=== PATIENT | male | born 1940 | race Caucasian/White ===

== ENCOUNTER 2019-08-20 11:29 | Day surgery (SDC) | payer MEDICARE ==
[2019-08-18 15:18] VITALS: BMI 25.1
[~2019-08-20 11:29] MED LIST: ALBUTEROL NEB (CONC) 2.5 MG/0.5 ML INHALATION ONE; DEXAMETHASONE SOD PHOSPHATE 10 MG/ML 1 ML VIAL IV ONE; LACTATED RINGERS 1,000 ML IV SCH; LIDOCAINE 1% (10MG/ML) FOR IV START INTRADERMA PRN; LIDOCAINE 2% (PF) 20 MG/ML 5 ML VIAL INHALATION ONE; LIDOCAINE VISCOUS 300 MG/15 ML CUP MUCOUS MEM ONE; ONDANSETRON 4 MG/2 ML VIAL IVP ONE; SODIUM CHLORIDE 0.9% 1,000 ML IV SCH
[2019-08-20] MEDS ORDERED: MIDAZOLAM 2 MG/2 ML VIAL IV ONE (12:55)
--- NOTE | 2019-08-20 13:25 | CT ---
EXAMINATION TYPE: CT Chest wo con [facility] Protocol DATE OF EXAM: 08/20/2019 COMPARISON: None HISTORY: Veran chest CT DLP: 604 mGycm Automated exposure control for dose reduction was used. FINDINGS: There is a 1.5 cm spiculated lesion in the right upper lobe highly suggestive of malignancy. Pleural- based thickening and additional areas of subsegmental consolidation are typical atelectasis. There is abnormal soft tissue in the left hilum suspicious for hilar mass or adenopathy measuring short axis of 1.6 cm with a superior segment left lower lobe irregular mass measuring 2.7 cm. A bronchial narrow ing noted. Linear changes involving the periphery of the posterior segment left lower lobe most typic al atelectasis. There are diffuse emphysematous changes. No pleural effusion or pneumothorax. Atherosclerotic change of the aorta and dense coronary artery th ree-vessel disease noted. There is a small hiatal hernia. Hypertrophic change of the spine noted. IMPRESSION: PRENAVIGATIONAL CT SCAN DEMONSTRATES LARGE LEFT SUPERIOR SEGMENT LOWER LOBE MASS MEASURING 2.7 CM WIT H SUSPECTED LEFT HILAR ADENOPATHY SUSPICIOUS FOR MALIGNANCY. ADDITIONAL 1.5 CM SUSPICIOUS FOR MALIGNA NCY LESION RIGHT UPPER LOBE.
[2019-08-20] MEDS ORDERED: MIDAZOLAM 2 MG/2 ML VIAL ONE (14:27)
[2019-08-20] MEDS ORDERED: LABETALOL 5 MG/ML VIAL MDV ONE (14:27)
[2019-08-20] MEDS ORDERED: LIDOCAINE 1% INJ 10MG/ML (20 ML MDV) ONE (14:27)
[2019-08-20] MEDS ORDERED: PROPOFOL 10 MG/ML 20 ML VIAL IV ONE (14:27)
[2019-08-20] MEDS ORDERED: fentaNYL (PF) 50 MCG/ML 2 ML AMP ONE (14:27)
[2019-08-20] MEDS ORDERED: ESMOLOL 100 MG/10 ML VIAL ONE (14:27)
[2019-08-20] MEDS ORDERED: LACTATED RINGERS 1,000 ML IV ONE (15:21)
--- NOTE | 2019-08-20 15:27 | P.PCN ---
Date of Procedure: 08/20/19 Preoperative Diagnosis: LLL mass and RUL mass Postoperative Diagnosis: same Procedure(s) Performed: Navigational bronchoscopy and TBBX of the LLL mass, TBBB RUL mass, transbronchial brushings of the left lower lobe mass and the right upper lobe mass, bronchioloalveolar lavage of the left lower lobe superior segment Anesthesia: MARYA Surgeon: Tejas Vazquez Estimated Blood Loss (ml): 0 Pathology: other Condition: stable Disposition: same day Operative Findings: This procedure was done and the endoscopy suite. A CAT scan of the chest was done using the [employer] protocol. The patient was had the appropriate Vpads place. The images were uploaded into the system where the left lower lobe lesion and the right upper lobe lesion was identified and was mapped and all of this information was then downloaded into the [employer] navigational tower The patient was brought into the operating room where he was intubated by anesthesia and placed on a mechanical ventilator. Following that, the flexible bronchoscope was introduced through the oral tracheal tube, appropriate calibration was done using the main sasha and the secondary sasha on the left as reference points and following that an airway inspection was done. Distal trachea was within normal limits. Examination of the right side included the right mainstem bronchus, right upper lobe bronchus regular lobe bronchus and right lower lobe bronchus along with various segments and subsegments. All of these airways were patent. Examination left side included left mainstem bronchus that was normal. Left upper lobe bronchus was within normal limits. The lingular segment was within normal limits. Left lower lobe superior segment was plugged with endobronchial irregularities and possibly some endobronchial tumor. There was also extrinsic compression and narrowing of the segment where I was unable to advance the bronchoscope passed that. The various segments of the left lower lobe including the anterior lateral and posterior segments were patent and within normal limits. At this point, the bronchoscope was moved to the severe segment of the left lower lobe and using navigational guidance, transbronchial biopsies of the left infrahilar mass was done. Multiple biopsies were obtained. Endobronchial brushings was also done utilizing the navigational guidance. Following that, a total of 80 mL of fluid was infused into the subsegment and 10 cc of bloody aspirate was obtained. Following that, the bronchoscope was moved to the right side. Using navigational guidance, the bronchoscope was directed to the right upper lobe apical segment. Transbronchial biopsies obtained using navigational guidance. Transbronchial brushings of the right upper lobe lesion was done using navigational guidance. Therapeutic airway suctioning was done. Airways were cleared of any respiratory secretions and the bronchoscope was removed. The patient was left for anesthesia for extubation. After successful extubation, the patient will be transferred to recovery for further monitoring. No bedside complications was encountered during the procedure the patient remains with an empty stable oxygenating well throughout the procedure. Appropriate samples were sent for pathologic evaluation.
[2019-08-20 15:51] VITALS: TEMP 97.2
--- NOTE | 2019-08-20 16:00 | XR ---
EXAMINATION TYPE: XR chest 1V DATE OF EXAM: 08/20/2019 COMPARISON: NONE HISTORY: Post bronchoscopy TECHNIQUE: Single frontal view of the chest is obtained. FINDINGS: Bilateral patchy airspace disease is noted. A spiculated nodule seen in the right upper lo be by CT scan not as well seen. Left hilar prominence with nodularity noted by CT scan is seen. No si zable pneumothorax. Correlate for underlying COPD or chronic interstitial lung disease. IMPRESSION: 1. No sizable pneumothorax identified. 2. Bilateral areas of consolidation and pulmonary mass are better seen by recent CT scan.
[2019-08-20 17:28] VITALS: BP 120/67; PULSE 81; RESP 18
== END 2019-08-20 17:15 | disposition home or self-care (01) ==
LOC: ORWHC2ENDO 11:29
PROVIDERS: ATTEND Internal Medicine Critical Care Medicine
DX: C34.32 Malignant neoplasm of lower lobe, left bronchus or lung (principal); J98.4 Other disorders of lung; N40.0 Benign prostatic hyperplasia without lower urinary tract symptoms; J43.9 Emphysema, unspecified; I10 Essential (primary) hypertension; F17.210 Nicotine dependence, cigarettes, uncomplicated; Z79.899 Other long term (current) drug therapy; Z81.8 Family history of other mental and behavioral disorders; Z83.1 Family history of other infectious and parasitic diseases; Z97.2 Presence of dental prosthetic device (complete) (partial)
CPT/HCPCS: 88104; 88108; 88305; 88342; 87070; 87205; 71045; 71250; 31625; 31623; 31624; 31627; J2250; J2405; J2001; J3010; J2704

== ENCOUNTER → 2019-09-16 | Outpatient (CLI) | payer MEDICARE ==
--- NOTE | 2019-09-16 16:03 | MR ---
EXAMINATION TYPE: MR brain wo/w con DATE OF EXAM: 09/16/2019 COMPARISON: NONE HISTORY: Lung cancer with concern for intracranial metastasis. TECHNIQUE: Multiplanar, multisequence images of the brain and brainstem is performed without and with IV contras t, utilizing 7.5 mL intravenous Gadavist . FINDINGS: Diffusion weighted images demonstrate no evidence of a recent infarct or other diffusion ab normality. There is no extra-axial fluid collection. Mild both white matter and periventricular whit e matter T2/FLAIR hyperintensity without abnormal enhancement. The ventricular system and cisternal s paces are symmetrically prominent compatible with age-related volume loss. Midline structures demonstrate normal morphology. The craniocervical junction appears within normal limits. Post contrast images demonstrate no abnormal enhancement. The dural venous sinuses appear pa tent. The visualized sinuses display mild mucosal thickening in frontal and ethmoid sinuses as well a s scant mucosal thickening in the right maxillary sinus inferiorly. The globes are intact. IMPRESSION: 1. No abnormal intracranial. No vasogenic edema. No evidence of intracranial metastasis. 2. Mild burden nonspecific white matter change, most commonly on the basis of chronic microangiopathy . 3. No acute infarct, midline shift or mass effect. 4. Mild paranasal sinus disease.
== END | disposition home or self-care (01) ==
LOC: RADMRIMAIN 11:04
PROVIDERS: ATTEND Radiology Radiation Oncology
DX: R90.82 White matter disease, unspecified (principal); C34.32 Malignant neoplasm of lower lobe, left bronchus or lung
CPT/HCPCS: 70553; A9585

== ENCOUNTER → 2019-12-09 | Outpatient (CLI) | payer MEDICARE ==
[2019-12-09 10:40] LABS: African American GFR (CKD) >90 (>60 ml/min/1.73 sqM); Blood Urea Nitrogen 19 mg/dL (9-20); Non-African American GFR(CKD) 89 (>60 ml/min/1.73 sqM)
--- NOTE | 2019-12-09 11:59 | CT ---
EXAMINATION TYPE: CT chest w con DATE OF EXAM: 12/09/2019 COMPARISON: Outside PET CT August 15, 2019. HISTORY: follow up lung cancer completed chemotherapy and radiation treatment last month. CT DLP: 303.1 mGycm. Automated Exposure Control for Dose Reduction was Utilized. TECHNIQUE: CT scan of the thorax is performed following with IV Contrast, patient injected with 100 mL of Isovue 300. FINDINGS: LUNGS: Background mild to moderate underlying emphysematous change greatest in the upper lungs. Persi stent spiculated 1.4 x 1.1 cm right upper lung nodule or neoplasm axial image 20 not significantly ch anged from PET CT axial image 83. There is additional residual posterior left hilar 2.8 x 2.3 cm mass or neoplasm axial image 31 which is decreased in size or prominence from the recent PET/CT where it had left hilar involvement or extension. Some residual peribronchial wall thickening left lower lobe bronchus on axial image 35 remains present . No New nodules or masses. No pleural effusion or pneumot horax noted. MEDIASTINUM: There is marked interval improvement in the abnormal thoracic lymph nodes on PET CT. N o definitive greater than 1 cm new or residual thoracic lymph nodes present on current study. No card iomegaly or pericardial effusion is seen. Persistent coronary artery calcification which is noted ma rker for underlying coronary artery disease. OTHER: Small degree of bilateral subareolar gynecomastia redemonstrated. Stable asymmetric thickening to left adrenal gland which was a metabolic on PET CT IMPRESSION: Resolved enlarged hypermetabolic mediastinal adenopathy. Improved left hilar mass or neop lasm. Stable right upper lobe nodule or neoplasm. No new suspicious nodules or adenopathy noted. Over all partial positive treatment response.
== END | disposition home or self-care (01) ==
LOC: RADCTMAIN 10:02
PROVIDERS: ATTEND Internal Medicine Hematology & Oncology
DX: R91.1 Solitary pulmonary nodule (principal); C34.32 Malignant neoplasm of lower lobe, left bronchus or lung
CPT/HCPCS: 82565; 84520; 71260; 36415; Q9967

== ENCOUNTER → 2020-03-08 | Outpatient (CLI) | payer MEDICARE ==
[2020-03-08 09:26] LABS: African American GFR (CKD) >90 (>60 ml/min/1.73 sqM); Blood Urea Nitrogen 20 mg/dL (9-20); Non-African American GFR(CKD) 83 (>60 ml/min/1.73 sqM)
--- NOTE | 2020-03-09 09:06 | CT ---
EXAMINATION TYPE: CT chest w con DATE OF EXAM: 03/08/2020 COMPARISON: 12/09/2019 HISTORY: Lung CA CT DLP: 404.7 mGycm, Automated exposure control for dose reduction was used. CONTRAST: Performed injected with 100 mL of Isovue 300. TECHNIQUE: Axial images were obtained at 5 mm thick sections. Reconstructed images are reviewed on [employer] computer in the coronal plane. FINDINGS: Portion of the thyroid visualized is normal. Emphysematous changes are present. Some distortion within the right apex. This area has diminished in volume over the interval, measurements approximately 1.5 x 1.0 cm are similar to the previous measu rement 1.5 x 1.1 cm. Previous posterior left hilar density has increased in size currently measuring 4.2 x 2.5 cm. Previou s measurement 2.4 x 1.8 cm. Additionally, distal increased consolidation is present. Series 4 image 2 8. There is a small density adjacent to the posterior left lung base measuring 0.7 cm. This could be ate lectasis. Metastatic lesion is not excluded. This is a new finding. No enlarged mediastinal or hilar adenopathy is evident. The ascending aorta diameter at the level o f the main pulmonary artery is 3.6 cm. The main pulmonary artery diameter at the bifurcation is 2.2 cm. Coronary artery calcification is present. Limited CT sections are obtained through the upper abdomen. There is a small hiatal hernia present. T here is elevation left diaphragm. Upper abdomen is otherwise unremarkable. IMPRESSIONS: 1. Left posterior density has increased in size and peripheral consolidation distal to this has devel oped over the interval. 2. Right apical density has diminished in volume although size measurements are stable. 3. New density posterior left lung base. Metastasis is not excluded. This could be related to atelect asis.
== END | disposition home or self-care (01) ==
LOC: RADCTMAIN 08:40
PROVIDERS: ATTEND Internal Medicine Hematology & Oncology
DX: J98.4 Other disorders of lung (principal); C34.30 Malignant neoplasm of lower lobe, unspecified bronchus or lung
CPT/HCPCS: 82565; 84520; 71260; 36415; Q9967

== ENCOUNTER → 2020-03-24 | Outpatient (CLI) | payer MEDICARE ==
--- NOTE | 2020-03-28 18:02 | PE ---
EXAMINATION TYPE: PET CT fusion skull to thigh DATE OF EXAM: 03/24/2020 COMPARISON: CT chest 03/08/2020 Prior PET/CT: 08/15/2019 [facility] HISTORY: Lung cancer TECHNIQUE: Following the intravenous administration of 12.70 mCi of F-18 FDG, whole body images are performed from the skull base to the midthigh. Images are reviewed on the computer in the coronal, a xial, and sagittal planes. Reconstructed rotating images are created on independent workstation and reviewed on the computer. A localization and attenuation correction CT is performed in conjunction with the PET scan. DLP: 478.26 mGycm SCAN: Subsequent Blood glucose: 105 mg/dL Average Mediastinum SUV: 1.3 Average Liver SUV: 1.71 FINDINGS: NECK: No abnormal uptake THORAX: There is diffuse increased uptake within the consolidation within the posterior left midlung. Example SUV of 5.29 Small area of increased density within the posterior medial left lung base does not have abnormal ra diotracer uptake with an SUV value currently is 0.61. Image 118 Small density of the right apex is nonspecific and has an SUV value of 0.85. Image 78 ABDOMEN: No abnormal uptake PELVIS: No abnormal uptake OSSEOUS STRUCTURES: Slight increase uptake may be within the left iliac wing superior to the acetabul um, example image 209. SUV values intermediate at 1.28. This is asymmetric with the contralateral khurram e however LOCALIZATION CT: There is a large dense consolidation through the posterior left midlung correspondin g to the area of uptake on PET scan compatible with the patient's neoplasm. Note is made of coronary artery calcification. There is a hypodensity within the inferior right lobe liver which is photopenic likely is a cyst. Bilateral inguinal hernias are present. COMPARISON: Right apical lesion is smaller than comparison currently measuring 1.4 x 0.9 cm. Previous measurement 1.6 x 1.1 cm. SUV values also intermediate. Previous consolidation was localized to the posterior left hilar region. This currently extends around the lung to the peripheral left lung giacomo n enlarged over the interval. The nodule within the posterior left lung base was not identified previ ously. IMPRESSION: 1. Enlarging left lung neoplasm. This has expanded from the posterior left hilar region to extract ex tend around through the posterior aspect of the lung to the lateral left midlung. 2. Right apical nodule has diminished in size over the interval. Small nodule may have developed at t he left lung base. However, these nodules have intermediate signal and are nonspecific for neoplasm. 3. Ill-defined mild increased uptake in the mid left iliac wing. Early metastasis cannot be excluded.
== END | disposition home or self-care (01) ==
LOC: RADPETMAIN 13:21
PROVIDERS: ATTEND Internal Medicine Hematology & Oncology
DX: R91.8 Other nonspecific abnormal finding of lung field (principal); C34.32 Malignant neoplasm of lower lobe, left bronchus or lung; Z92.21 Personal history of antineoplastic chemotherapy
CPT/HCPCS: 78815; A9552

== ENCOUNTER → 2020-07-07 | Outpatient (CLI) | payer MEDICARE ==
--- NOTE | 2020-07-10 13:50 | PE ---
Nuclear medicine PET/CT HISTORY: Left lower Lung carcinoma, C 34.32, subsequent Patient received 12.4 mCi F-18 FDG intravenously in delayed scanning was performed from the skull bas e to the mid thighs. Localization and attenuation correction CT scan was performed. Correlation to prior nuclear medicine PET/CT dated 03/24/2020 Chest and neck: There is no supraclavicular or cervical adenopathy. Right upper lobe shows interval d evelopment of abnormal increased attenuation as compared to prior exam the area has progressed, focus of uptake present in the perihilar region, SUV 0.7. There is some air bronchograms present medially extending to the apex and along the medial aspect of the left upper lobe as well as the anterior kim in along the pleural surface with some mild uptake. Within superior segment of the right lower lobe t here is some abnormal peripheral density with corresponding hypermetabolic uptake, SUV 3.9. Groundgla ss opacity in the left upper lobe has developed, there is soft tissue with interval development fox red to prior exam, air bronchograms, left lower lobe is also showing interval development of a centra l mass with some peripheral possible postobstructive changes, SUV 2.6, peripherally some mild uptake, SUV 2.6. There is no pleural or pericardial effusion. ABDOMEN: Low dense focus within the inferior right lobe of the liver shows uncertain unit measurement s consistent with cyst, there is no suspicious uptake. There is a hiatal hernia present. No retroperi toneal adenopathy or evident adrenal mass. There is no ascites. Uptake within the bowel is likely due to physiologic. Bilateral hernias are present in the groins containing bowel loops. No evident pelvi c adenopathy. Osseous structures show no suspicious uptake IMPRESSION: Bilateral areas of abnormal attenuation within the lungs with areas of hypermetabolic upt lisa as described.
== END | disposition home or self-care (01) ==
LOC: RADPETMAIN 09:36
PROVIDERS: ATTEND Internal Medicine Hematology & Oncology
DX: C34.32 Malignant neoplasm of lower lobe, left bronchus or lung (principal)
CPT/HCPCS: 78815; A9552

== ENCOUNTER 2020-08-15 09:02 | Inpatient (IN) | payer MEDICARE ==
[2020-08-15] MEDS ORDERED: IPRATROPIUM-ALBUTEROL 3 ML NEB INHALATION STA (09:25)
--- NOTE | 2020-08-15 09:31 | ED ---
General Adult HPI - General Chief complaint: Chest Pain Stated complaint: chest pain/SOB-sent by [facility] Time Seen by Provider: 08/15/20 09:05 Source: patient, RN/MD, RN notes reviewed Mode of arrival: wheelchair Limitations: no limitations - History of Present Illness Initial comments: Patient is a pleasant 80-year-old male presenting to the emergency Department with complaints of dyspnea. Patient has lung cancer sent from Dr. Ervin's office. Patient states dyspnea has been progressive over months. Patient has been on steroids recently and states patient has been she was short of breath the past week. Patient has had temperature at home up to 100.6. Patient is able to walk around 10 feet before having to break and rest. No leg pain or leg swelling. Patient does have some mild chest tightness. Patient does have occasional cough with nonproductive. - Related Data Home Medications Medication Instructions Recorded Confirmed Ascorbic Acid [Vitamin C] 500 mg PO DAILY 08/18/19 08/15/20 Multivitamins, Thera [Multivitamin 1 tab PO DAILY 08/18/19 08/15/20 (formulary)] Tamsulosin [Flomax] 0.4 mg PO HS 08/18/19 08/15/20 Ibuprofen [Motrin Ib] 400 mg PO DAILY PRN 08/15/20 08/15/20 Allergies Allergy/AdvReac Type Severity Reaction Status Date / Time No Known Allergies Allergy Verified 08/15/20 11:00 Review of Systems ROS Statement: Those systems with pertinent positive or pertinent negative responses have been documented in the HPI. ROS Other: All systems not noted in ROS Statement are negative. Constitutional: Denies: fever Eyes: Denies: eye pain ENT: Denies: ear pain Respiratory: Reports: as per HPI, cough, dyspnea Cardiovascular: Reports: as per HPI, chest pain Endocrine: Reports: fatigue Gastrointestinal: Denies: abdominal pain Genitourinary: Denies: dysuria Musculoskeletal: Denies: back pain Skin: Denies: rash Neurological: Denies: weakness Past Medical History Additional Past Medical History / Comment(s): SOB,74% lung capacity,cough intermittently, enlarged prostate History of Any Multi-Drug Resistant Organisms: None Reported Past Surgical History: Tonsillectomy Additional Past Surgical History / Comment(s): lung biopsy Past Anesthesia/Blood Transfusion Reactions: No Reported Reaction Past Psychological History: No Psychological Hx Reported Smoking Status: Former smoker Past Alcohol Use History: None Reported Past Drug Use History: None Reported - Past Family History Mother Family Medical History: No Reported History Father Family Medical History: Deep Vein Thrombosis (DVT) General Exam Limitations: no limitations General appearance: alert, in no apparent distress Head exam: Present: normocephalic Eye exam: Present: normal appearance Neck exam: Present: normal inspection Respiratory exam: Present: respiratory distress, accessory muscle use Cardiovascular Exam: Present: regular rate, normal rhythm Expanded Peripheral pulses: 2+: Radial (R), Radial (L), Posterior Tibialis (R), Posterior Tibialis (L) GI/Abdominal exam: Present: soft. Absent: tenderness Extremities exam: Present: normal inspection. Absent: pedal edema, calf tenderness Neurological exam: Present: alert Psychiatric exam: Present: normal affect, normal mood Skin exam: Present: normal color Course Vital Signs 08/15/20 08/15/20 08/15/20 09:06 09:29 09:42 Temperature 98.7 F Pulse Rate 110 H 105 H 105 H Respiratory 20 22 Rate Blood Pressure 151/83 151/82 O2 Sat by Pulse 95 98 Oximetry 08/15/20 08/15/20 09:52 11:01 Temperature Pulse Rate 106 H 110 H Respiratory 18 Rate Blood Pressure 131/90 O2 Sat by Pulse 97 Oximetry - Reevaluation(s) Reevaluation #1: 08/15/20 09:26 Case was discussed with Dr. Ervin who did a sinus patient over. He states patient did have pulse ox 76-79% on room air in the office. Recent low-grade fevers. He would like computed tomography scan of the chest done. He is concerned for possible: Pulmonary embolism versus covid versus pneumonitis related to treatment. EKG Findings - EKG Comments: EKG Findings:: Sinus tachycardia 108. MT 150. QRS 126. QT 362. QTC 45. Superior axis. Right bundle-branch block. No acute ST change. Medical Decision Making - Medical Decision Making He should reevaluated and resting comfortably in bed. Patient and family updated on results and plan. Dr. andrews notified who will admit covering for Dr. Fernandez, who admits for Dr. Gordon. Consult will be placed with Dr. Arcadio Vazquez. - Lab Data Result diagrams: 08/15/20 09:39 03/02/21 09:39 Lab Results 08/15/20 08/15/20 08/15/20 Range/Units 09:38 09:39 09:39 WBC 4.2 (3.8-10.6) k/uL RBC 4.82 (4.30-5.90) m/uL Hgb 14.7 (13.0-17.5) gm/dL Hct 42.6 (39.0-53.0) % MCV 88.4 (80.0-100.0) fL MCH 30.6 (25.0-35.0) pg MCHC 34.6 (31.0-37.0) g/dL RDW 14.3 (11.5-15.5) % Plt Count 197 (150-450) k/uL MPV 6.9 Neutrophils % 73 % Lymphocytes % 15 % Monocytes % 7 % Eosinophils % 2 % Basophils % 1 % Neutrophils # 3.0 (1.3-7.7) k/uL Lymphocytes # 0.6 L (1.0-4.8) k/uL Monocytes # 0.3 (0-1.0) k/uL Eosinophils # 0.1 (0-0.7) k/uL Basophils # 0.0 (0-0.2) k/uL PT 10.3 (9.0-12.0) sec INR 1.0 (<1.2) APTT 24.3 (22.0-30.0) sec Sodium (137-145) mmol/L Potassium (3.5-5.1) mmol/L Chloride (98-107) mmol/L Carbon Dioxide (22-30) mmol/L Anion Gap mmol/L BUN (9-20) mg/dL Creatinine (0.66-1.25) mg/dL Est GFR (CKD-EPI)AfAm (>60 ml/min/1.73 sqM) Est GFR (CKD-EPI)NonAf (>60 ml/min/1.73 sqM) Glucose (74-99) mg/dL Plasma Lactic Acid All (0.7-2.0) mmol/L Calcium (8.4-10.2) mg/dL Total Bilirubin (0.2-1.3) mg/dL AST (17-59) U/L ALT (4-49) U/L Alkaline Phosphatase (38-126) U/L Troponin I (0.000-0.034) ng/mL NT-Pro-B Natriuret Pep pg/mL Total Protein (6.3-8.2) g/dL Albumin (3.5-5.0) g/dL Coronavirus (PCR) Not Detected (Not Detectd) 08/15/20 08/15/20 08/15/20 Range/Units 09:39 09:39 09:39 WBC (3.8-10.6) k/uL RBC (4.30-5.90) m/uL Hgb (13.0-17.5) gm/dL Hct (39.0-53.0) % MCV (80.0-100.0) fL MCH (25.0-35.0) pg MCHC (31.0-37.0) g/dL RDW (11.5-15.5) % Plt Count (150-450) k/uL MPV Neutrophils % % Lymphocytes % % Monocytes % % Eosinophils % % Basophils % % Neutrophils # (1.3-7.7) k/uL Lymphocytes # (1.0-4.8) k/uL Monocytes # (0-1.0) k/uL Eosinophils # (0-0.7) k/uL Basophils # (0-0.2) k/uL PT (9.0-12.0) sec INR (<1.2) APTT (22.0-30.0) sec Sodium 138 (137-145) mmol/L Potassium 4.6 (3.5-5.1) mmol/L Chloride 102 (98-107) mmol/L Carbon Dioxide 29 (22-30) mmol/L Anion Gap 7 mmol/L BUN 23 H (9-20) mg/dL Creatinine 0.95 (0.66-1.25) mg/dL Est GFR (CKD-EPI)AfAm 89 (>60 ml/min/1.73 sqM) Est GFR (CKD-EPI)NonAf 77 (>60 ml/min/1.73 sqM) Glucose 108 H (74-99) mg/dL Plasma Lactic Acid All 1.9 (0.7-2.0) mmol/L Calcium 8.9 (8.4-10.2) mg/dL Total Bilirubin 1.0 (0.2-1.3) mg/dL AST 37 (17-59) U/L ALT 46 (4-49) U/L Alkaline Phosphatase 90 (38-126) U/L Troponin I <0.012 (0.000-0.034) ng/mL NT-Pro-B Natriuret Pep pg/mL Total Protein 6.8 (6.3-8.2) g/dL Albumin 3.7 (3.5-5.0) g/dL Coronavirus (PCR) (Not Detectd) 08/15/20 Range/Units 09:39 WBC (3.8-10.6) k/uL RBC (4.30-5.90) m/uL Hgb (13.0-17.5) gm/dL Hct (39.0-53.0) % MCV (80.0-100.0) fL MCH (25.0-35.0) pg MCHC (31.0-37.0) g/dL RDW (11.5-15.5) % Plt Count (150-450) k/uL MPV Neutrophils % % Lymphocytes % % Monocytes % % Eosinophils % % Basophils % % Neutrophils # (1.3-7.7) k/uL Lymphocytes # (1.0-4.8) k/uL Monocytes # (0-1.0) k/uL Eosinophils # (0-0.7) k/uL Basophils # (0-0.2) k/uL PT (9.0-12.0) sec INR (<1.2) APTT (22.0-30.0) sec Sodium (137-145) mmol/L Potassium (3.5-5.1) mmol/L Chloride (98-107) mmol/L Carbon Dioxide (22-30) mmol/L Anion Gap mmol/L BUN (9-20) mg/dL Creatinine (0.66-1.25) mg/dL Est GFR (CKD-EPI)AfAm (>60 ml/min/1.73 sqM) Est GFR (CKD-EPI)NonAf (>60 ml/min/1.73 sqM) Glucose (74-99) mg/dL Plasma Lactic Acid All (0.7-2.0) mmol/L Calcium (8.4-10.2) mg/dL Total Bilirubin (0.2-1.3) mg/dL AST (17-59) U/L ALT (4-49) U/L Alkaline Phosphatase (38-126) U/L Troponin I (0.000-0.034) ng/mL NT-Pro-B Natriuret Pep 46 pg/mL Total Protein (6.3-8.2) g/dL Albumin (3.5-5.0) g/dL Coronavirus (PCR) (Not Detectd) - Radiology Data Radiology results: report reviewed (No pulmonary embolism. Possible right lower lobe pneumonia. Bilateral upper lobe and left irregularities show changes of improvement.) Disposition Clinical Impression: Pneumonia Disposition: ADMITTED IP TO THIS HOSP Is patient prescribed a controlled substance at d/c from ED?: No Referrals: Omi Cummins MD [Primary Care Provider] - 1-2 days Decision Time: 11:44
[2020-08-15 09:58] LABS: Basophils % (A) 1 %; Eosinophils # (A) 0.1 k/uL (0-0.7); Eosinophils % (A) 2 %; HCT 42.6 % (39.0-53.0); HGB 14.7 gm/dL (13.0-17.5); Lymphocytes # (A) 0.6 k/uL (1.0-4.8); Lymphocytes % (A) 15 %; MCH 30.6 pg (25.0-35.0); MCHC 34.6 g/dL (31.0-37.0); MCV 88.4 fL (80.0-100.0); Mean Platelet Volume 6.9; Monocytes # (A) 0.3 k/uL (0-1.0); Monocytes % (A) 7 %; Neutrophils % (A) 73 %; Platelet Count 197 k/uL (150-450); RBC 4.82 m/uL (4.30-5.90); RDW 14.3 % (11.5-15.5); WBC 4.2 k/uL (3.8-10.6)
[2020-08-15 10:06] LABS: Albumin 3.7 g/dL (3.5-5.0); Calcium 8.9 mg/dL (8.4-10.2); Potassium 4.6 mmol/L (3.5-5.1); Total Protein 6.8 g/dL (6.3-8.2)
[2020-08-15 10:09] LABS: Partial Thromboplastin Time 24.3 sec (22.0-30.0); Prothrombin Time 10.3 sec (9.0-12.0)
--- NOTE | 2020-08-15 11:21 | CT ---
EXAMINATION TYPE: CT angio chest DATE OF EXAM: 08/15/2020 COMPARISON: PET/CT 07/07/2020. 03/24/2020. HISTORY: 80-year-old male Dyspnea, chest Tightness, Cough. History of lung cancer, evaluate for PE. TECHNIQUE: Contiguous axial scanning of the chest performed with IV Contrast, patient injected with 7 4 mL of Isovue 370. Coronal/sagittal MIP reconstructions performed. CT DLP: 333.5 mGycm Automated exposure control for dose reduction was used. FINDINGS: Heart normal size without pericardial effusion. No flattening of the interventricular septum or reflu x of contrast into the hepatic veins. Three-vessel coronary artery calcifications are present. Aorta normal caliber with a conventional access of branching anatomy. Satisfactory opacification of the pulmonary arterial system. No evidence for pulmonary embolus. Subcarinal lymph node is larger at 1.1 cm versus 6 mm, previously. However, no other thoracic lymphad enopathy is identified otherwise. Irregular areas of volume loss and consolidation are noted within the right greater than left upper l obes and left hilum. In the upper lobes, this appearance is relatively unchanged from 07/07/2020. The left hilar opacity shows improvement in the lower lobe/infrahilar region though persistent masslike p erihilar consolidation remains just above measuring up to 6.2 cm, not significantly changed. Previous focal opacity posterior right lower lobe, axial image 65 also shows some improvement with on ly some residual groundglass density. However, there is new patchy airspace opacity posterior right base. Background of moderate emphysema. Small to moderate-sized hernia in the visualized upper abdomen. Bones: No osseous destructive process. IMPRESSION: 1. COPD WITH MODERATE EMPHYSEMA. CAD WITH THREE-VESSEL CORONARY ARTERY CALCIFICATIONS. 2. NO EVIDENCE FOR PULMONARY EMBOLUS. 3. BILATERAL UPPER LOBE IRREGULAR AREAS OF CONSOLIDATION AND VOLUME LOSS AND ALSO LARGE AREA IN THE L EFT PERIHILUM, SUSPECTED SITES OF TREATED DISEASE AND POST RADIATION THERAPY CHANGE. ALONG THE LEFT L OWER LOBE/LEFT INFRAHILAR REGION AND ALSO ALONG THE POSTERIOR RIGHT LOWER LOBE, THE CHANGES ARE IMPRO VING, POSSIBLE IMPROVING RADIATION PNEUMONITIS. 4. HOWEVER, THERE IS NEW PATCHY AIRSPACE DISEASE AT THE POSTERIOR RIGHT BASE THAT COULD REPRESENT PNE UMONIA. 5. IN ADDITION, THERE IS A SUBCARINAL LYMPH NODE WHICH IS NOT ENLARGED BUT INCREASING IN SIZE CURRENT LY AT 1.1 CM VERSUS 6 MM, PREVIOUSLY. APPROPRIATE CONTINUED ONCOLOGIC FOLLOW-UP RECOMMENDED.
[2020-08-15] MEDS ORDERED: PNEUMONIA PROTOCOL UTILIZED 1 EACH MISC PO PRN (11:48)
[2020-08-15] MEDS ORDERED: AZITHROMYCIN 500 MG in SODIUM CHLORIDE 0.9% 250 ML IVPB STA (11:48)
[2020-08-15] MEDS ORDERED: IPRATROPIUM-ALBUTEROL 3 ML NEB INHALATION PRN ×2 (11:48→13:10)
[2020-08-15] MEDS ORDERED: CEFEPIME 2 GM in SODIUM CHLORIDE 0.9% 100 ML IVPB STA (11:48)
[2020-08-15] MEDS ORDERED: IPRATROPIUM-ALBUTEROL 3 ML NEB INHALATION SCH (12:00)
[2020-08-15] MEDS: SODIUM CHLORIDE 0.9% 1,000 ML IV SCH ×2 (12:28→23:55)
[2020-08-15] MEDS: IPRATROPIUM-ALBUTEROL 3 ML NEB INHALATION SCH ×2 (13:51→19:11)
--- NOTE | 2020-08-15 13:56 | P.CNPUL ---
History of Present Illness Consult date: 08/15/20 Reason for consult: dyspnea, pneumonia History of present illness: Pleasant 80-year-old male patient a chronic smoker. Wasn't diagnosed having a squamous cell carcinoma of the lung. He initially presented to me in August 2009 with abnormal CAT scan of the chest. He was having cough for almost a year. He went to see his Dr. Cummins and the patient had a chest x-ray that came back abnormal. Following that he was given a CAT scan of the chest that showed a spiculated area of masslike density in the left perihilar area in the superior segment of the left lower lobe segment measuring 3.2 x 2.1 cm in size. There was a second spiculated lesion in the right upper lobe measuring 1.2 x 1 cm. There is underlying emphysema. No significant mediastinal lymphadenopathy with exception of one left hilar lymph node measuring 1.2 cm in size. I performed a navigational bronchoscopy on this patient and the patient was diagnosed having a squamous cell carcinoma of the left upper lobe. He had a left perihilar mass with lymphadenopathy that was biopsied it was consistent with was cell carcinoma. He had another 1.4 cm lesion in the right upper lobe bronchoscopy did not yield any positive results from the right upper lobe and we assume that this is either a metastatic deposit for a synchronous primary. The patient was referred to oncology. He was started on treatment. He receives concurrent chemoradiation therapy which he tolerated well. He lost around 5 pounds. He developed some dysphagia which is mild. He is also having some exertional d yspnea. He has COPD and his FEV1 is no more than of 73% of predicted. He underwent a follow-up PET/CT that was done on 12/09/2019 and the PET/CT showed that the spiculated lesion in the right upper lobe has remained unchanged compared to the previous imaging and was measuring 1.4 x 1.1 cm. As for the left side, there was significant improvement. There was resolution of the enlarged hypermetabolic mediastinal lymphadenopathy and improved left hilar mass. No suspicious nodules appeared other than the ones mentioned. This was consistent with positive partial treatment response. The patient was given immunotherapy in the form of Imfinzi active treatment every 2 weeks and the last treatment was in June 2020.. He was also going to undergo radiosurgery to the right upper lobe. The patient had a subsequent PET scan of the body on 07/10/2020 and the PET scan showed bilateral areas of attenuation within the lungs with metabolic uptake. The right upper lobe showed interval development of an abnormal increased attenuation compared to the prior exam and it had progressed. There was some air bronchograms extending to the apex and along the medial aspect of the left upper lobe as well as anterior margin of the pleural surface with some mild uptake. Within the superior segment of the right lower lobe, there was also abnormal peripheral density corresponding with metabolic activity and the SUV of 3.9 and groundglass opacity in the left upper lobe and developed. There was also a left lower lobe mass peripherally showing increased metabolic activity. As such, there was evidence of interval progression. There was also a right lobe of the liver lesion increases in size measuring 6.2 cm in size compared to 3.6 cm in size on previous evaluation. The patient came into the emergency department upon the request of his oncologist because of worsening shortness of breath and hypoxemia. The patient had a temperature 100.6 at home. He was seen at oncology office and he was sent over to the hospital. He was progressively getting more short of breath over the past few months. He has been started on steroids recently and the stated that he had limited response. The patient is short of breath with minimal amount of activity even walking around 10 feet. No leg swelling. No DVTs. No pleurisy. He does have some occasional cough that is nonproductive. His white cell count is at 4.2 with hemoglobin 14.7 and a platelet count of 196, correlation profile is within normal, blood work essentially within normal in terms of his chemical profile and the proBNP level is only at 46 with a troponin of less than 0.01 and the Covid 19 testing came back negative. A CAT scan of the chest was done in the ED that showed no evidence of any pulmonary embolism. There was bilateral groundglass changes in combination with COPD. There was upper lobe irregular areas of consolidation and volume loss mainly in the left perihilar area representing most likely in mass and some right upper lobe opacity extending to the periphery probably related to radiation pneumonitis. There was a new patchy airspace disease in the posterior right lung base. There was also some subcarinal lymph nodes were small largest being around 1.1 cm in size. Note that the patient's breathing was progressively getting worse as of March 2020. 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 He was started on 40 mg and tapered by 10 mg every 1 week. By the time he went to a lower dose of prednisone, his breathing got worse and for that reason he end up in the hospital today for further investigation. Review of Systems Patient reports shortness of breath when walking but reports no chest pain, no arm pain on exertion, no shortness of breath when lying down, no palpitations, and no known heart murmur. He reports cough and shortness of breath but reports no wheezing, no coughing up blood, and no sleep apnea. He reports no fever, no night sweats, no significant weight gain, no significant weight loss, and no exercise intolerance. He reports no dry eyes, no vision change, and no irritat ion. He reports no difficulty hearing and no ear pain. He reports no frequent nosebleeds, no nose problems, and no sinus problems. He reports no sore throat, no bleeding gums, no snoring, no dry mouth, no mouth ulcers, no oral abnormalities, and no teeth problems. He reports no abdominal pain, no nausea, no vomiting, no constipation, normal appetite, no diarrhea, not vomiting blood, no dyspepsia, and no GERD. He reports no incontinence, no difficulty urinating, no hematuria, and no increased frequency. He reports no muscle aches, no muscle weakness, no arthralgias/joint pain, no back pain, and no swelling in the extremities. He reports no abnormal mole, no jaundice, no rashes, and no lacerat ion. He reports no loss of consciousness, no weakness, no numbness, no seizures, no dizziness, no migraines, no headaches, and no tremor. He reports no depression, no sleep disturbances, feeling safe in a relationship, no alcohol abuse, no anxiety, no hallucinations, and no suicidal thoughts. He reports no fatigue. He reports no swollen glands, no bruising, and no excessive bleeding. He reports no runny nose, no sinus pressure, no itching, no hives, and no frequent sneezing. Past Medical History Additional Past Medical History / Comment(s): History of lung cancer with squamous cell Carcinoma of the lung, COPD with an FEV1 of 74% of predicted, BPH, History of Any Multi-Drug Resistant Organisms: None Reported Past Surgical History: Tonsillectomy Additional Past Surgical History / Comment(s): lung biopsy Past Anesthesia/Blood Transfusion Reactions: No Reported Reaction Past Psychological History: No Psychological Hx Reported Smoking Status: Former smoker Past Alcohol Use History: None Reported Past Drug Use History: None Reported - Past Family History Mother Family Medical History: No Reported History Father Family Medical History: Deep Vein Thrombosis (DVT) Medications and Allergies Home Medications Medication Instructions Recorded Confirmed Type Ascorbic Acid [Vitamin C] 500 mg PO DAILY 08/18/19 08/15/20 History Multivitamins, Thera [Multivitamin 1 tab PO DAILY 08/18/19 08/15/20 History (formulary)] Tamsulosin [Flomax] 0.4 mg PO HS 08/18/19 08/15/20 History Ibuprofen [Motrin Ib] 400 mg PO DAILY PRN 08/15/20 08/15/20 History Allergies Allergy/AdvReac Type Severity Reaction Status Date / Time No Known Allergies Allergy Verified 08/15/20 11:00 Physical Exam Vitals: Vital Signs Temp Pulse Resp BP Pulse Ox 08/15/20 11:01 110 H 18 131/90 97 08/15/20 09:52 106 H 08/15/20 09:42 105 H 08/15/20 09:29 105 H 22 151/82 98 08/15/20 09:06 98.7 F 110 H 20 151/83 95 Intake and Output 08/14/20 08/15/20 08/15/20 22:59 06:59 14:59 Other: Weight 81.647 kg General Appearance no diaphoresis, dyspnea, pallor, or respiratory distress and speech not interrupted by breaths, not cachectic, well nourished, and appears well. HEENT no pursed lip breathing, jugular venous distention, mucous membrane cyanosis, or perioral cyanosis and mallampati classification: class 1. Chest no retractions, rhonchi, hyperinflation, sternocleidomastoid muscle contractions, supraclavicular retractions, intercostal retractions, prolonged expiratory wheezing, or decreased air movement; barrel chest and decreased air movement; and (normal) adventitious sounds: rales / crackles: bilaterally: midlung isabel. Heart no right ventricular heave, distant heart sounds, or s3 gallop and (normal) jugular vein and vein: jugular venous distention: by 0cm. GI bowel sounds: hyperactive (borborygmi) and diminished or absent. Extremities no cyanosis, clubbing, or edema. Neurologic no somnolence, confusion, or decreased mental status. Assisstive Devices: ambulates with no assitive devices. Gait and Mobility: gait WNL and full weight bearing. Skin: General Appearance normal and (normal) normal except as noted. Results - Laboratory Findings CBC and BMP: 08/15/20 09:39 08/15/20 09:39 PT/INR, D-dimer PT 10.3 sec (9.0-12.0) 08/15/20 09:39 INR 1.0 (<1.2) 08/15/20 09:39 Abnormal lab findings: Abnormal Labs 08/15/20 08/15/20 09:39 09:39 Lymphocytes # 0.6 L BUN 23 H Glucose 108 H - Diagnostic Findings Chest x-ray: image reviewed CT scan - chest: image reviewed Assessment and Plan Plan: 1. Squamous cell carcinoma of lung - patient presented in August 2019 with a left upper lobe/perihilar mass with lymphadenopathy in addition to a 1.2 cm lesion in the right upper lobe. The patient currently completed concurrent chemoradiation therapy and the left hilar mass has shown improvement with resolution of the l lymphadenopathy and the finding of the PET scan is considered to be partial positive response. the patient also received radiosurgery regarding the right upper lobe pulmonary nodule which is being treated as a synchronous lesion rather than metastatic. He was treated with Imfinzi on outpatient basis till June 2020. Treatment has been discontinued as the patient was suspected to have ILD related to the medication as the patient developed diffuse interstitial changes and probably will infiltrates. The patient was also given a course of steroids on outpatient basis. C34.90: Malignant neoplasm of unspecified part of unspecified bronchus or lung 2 dyspnea/hypoxemia with progressive worsening in exercise capacity. The patient had a PET scan on 07/10/2020 indicating possibly metastatic disease with the patient had progression of the lesions especially in the left lower lobe mass which had shown growth and possible postobstructive changes in addition to scattered areas of air bronchograms and some postradiation changes in the right upper lobe. There was also suspicious lesion in the liver measuring 6.2 cm in size. The CTA of the chest that was done today on 08/15/2020 showed an enlarging left lower lobe/left infrahilar mass in addition to post radiation changes in the right upper lobe, new airspace disease in the right lower lobe, and areas of groundglass changes bilaterally. 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 The patient has received steroids on outpatient basis with limited response. 3. chronic obstructive airways disease - spirometry today showed a drop in his lung capacity and FEV1 is down to 73% of predicted. Anoro one inhalation a day and Ventolin 2 puffs on an as-needed basis. 4 sinus tachycardia 5 fever Plan Hydrate patient with IV fluids. The patient is having some sinus tachycardia. We'll proceed with normal state rate of 100 mL an hour Check pro calcitonin level Check blood cultures Cover the patient with broad-spectrum antibiotics including a combination of cefepime and Zithromax Check a Legionella urine antigen Check sputum Gram stain and culture IV Solu-Medrol 125 mg Solu-Medrol right now and later on 60 mg every 6 hours Obtain records from oncology regarding his treatment Review the CAT scan with the radiologist We'll need a bronchoscopy ventilator status once the pulmonary status is more stable with an airway inspection and the lavage and possibly biopsies. 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 There is also suspicious opacity in the left infrahilar area suggestive of recurrent tumor in addition to possible endobronchial lesion in the distal left mainstem bronchus. Right lung findings are mainly related to radiation changes. There is also a vague infiltration of the right lower lobe, could be pneumonia. As such, shortness of breath and respiratory failure is multifactorial. We'll continue to follow.
--- NOTE | 2020-08-15 13:56 | P.HPIM ---
History of Present Illness This is a pleasant 80 years old male with past medical history of left lung lung cancer stage IIIB, benign prostatic hypertrophy. Presents because of dyspnea and chest tightness across his chest for the last 2 months with gradually getting worse. He is a patient of Dr. Cedillo. Patient went to see his oncologist Dr. Ervin for follow-up, 4-6 weeks ago he had PET scan showing inflammatory lung thought secondary to radiation and he was started on high-dose steroids, with Dr. Ervin office he mentioned he has difficulty breathing for the last 2 months with little to offer no phlegm with some chest tightness across the lower chest for the last 2 weeks and he advised him to go to the emergency room. Patient does not use oxygen at home His last chemotherapy and last radiotherapy was in December/2019 He quit smoking about 20 years ago and denies alcohol or illicit drugs. Rectal showing mild tachycardia at 110, he is saturating 97% on 2 L oxygen via nasal cannula and febrile. He has unremarkable CBC, INR, BMP and liver enzymes. Troponin is negative less than 0.012. ProBNP is low at 46. Coronal virus not detected. CTA of the chest showing called COPD with moderate emphysema. No PE. Bilateral upper lobe volume loss and consolidation suspected secondary to radiation therapy and the right lower lobe infrahilar changes secondary to improved radiation pneumonitis. Continue patchy airspace disease at the posterior right base at the present pneumonia without lymphedema. In the emergency room patient got Zithromax and cefepime. Received normal saline at 100 mL per hour Review of Systems CONSTITUTIONAL: No fever, no malaise, no fatigue. HEENT: No recent visual problems or hearing problems. Denied any sore throat. CARDIOVASCULAR: No orthopnea, PND, no palpitations, no syncope. PULMONARY: No chest wall tenderness, no hemoptysis. GASTROINTESTINAL: No diarrhea, no nausea, no vomiting, no abdominal pain. Normoactive bowel sounds. NEUROLOGICAL: No headaches, no weakness, no numbness. HEMATOLOGICAL: Denies any bleeding or petechiae. GENITOURINARY: Denies any burning micturition, frequency, or urgency. MUSCULOSKELETAL/RHEUMATOLOGICAL: Denies any joint pain, swelling, or any muscle pain. ENDOCRINE: Denies any polyuria or polydipsia. Past Medical History Additional Past Medical History / Comment(s): SOB,74% lung capacity,cough in termittently, enlarged prostate History of Any Multi-Drug Resistant Organisms: None Reported Past Surgical History: Tonsillectomy Additional Past Surgical History / Comment(s): lung biopsy Past Anesthesia/Blood Transfusion Reactions: No Reported Reaction Past Psychological History: No Psychological Hx Reported Smoking Status: Former smoker Past Alcohol Use History: None Reported Past Drug Use History: None Reported - Past Family History Mother Family Medical History: No Reported History Father Family Medical History: Deep Vein Thrombosis (DVT) Medications and Allergies Home Medications Medication Instructions Recorded Confirmed Type Ascorbic Acid [Vitamin C] 500 mg PO DAILY 08/18/19 08/15/20 History Multivitamins, Thera [Multivitamin 1 tab PO DAILY 08/18/19 08/15/20 History (formulary)] Tamsulosin [Flomax] 0.4 mg PO HS 08/18/19 08/15/20 History Ibuprofen [Motrin Ib] 400 mg PO DAILY PRN 08/15/20 08/15/20 History Allergies Allergy/AdvReac Type Severity Reaction Status Date / Time No Known Allergies Allergy Verified 08/15/20 11:00 Physical Exam Vitals: Vital Signs Temp Pulse Resp BP Pulse Ox 08/15/20 11:01 110 H 18 131/90 97 08/15/20 09:52 106 H 08/15/20 09:42 105 H 08/15/20 09:29 105 H 22 151/82 98 08/15/20 09:06 98.7 F 110 H 20 151/83 95 Intake and Output 08/14/20 08/15/20 08/15/20 22:59 06:59 14:59 Other: Weight 81.647 kg GENERAL: The patient is alert and oriented x3, not in any acute distress. Well developed, well nourished. HEENT: Pupils are round and equally reacting to light. EOMI. No scleral icterus. No conjunctival pallor. Normocephalic, atraumatic. No pharyngeal erythema. No thyromegaly. CARDIOVASCULAR: S1 and S2 present. No murmurs, rubs, or gallops. -PULMONARY: Chest is clear to auscultation, no wheezing or crackles. Patient somewhat tachypneic and some mild crepitation the right lower lung ABDOMEN: Soft, nontender, nondistended, normoactive bowel sounds. No palpable organomegaly. MUSCULOSKELETAL: No joint swelling or deformity. EXTREMITIES: No cyanosis, clubbing, or pedal edema. NEUROLOGICAL: Gross neurological examination did not reveal any focal deficits. SKIN: No rashes. No petechiae Results CBC & Chem 7: 08/15/20 09:39 08/15/20 09:39 Labs: Abnormal Lab Results - Last 24 Hours (Table) 08/15/20 08/15/20 Range/Units 09:39 09:39 Lymphocytes # 0.6 L (1.0-4.8) k/uL BUN 23 H (9-20) mg/dL Glucose 108 H (74-99) mg/dL Assessment and Plan Assessment: Possible right lower pneumonia Stage IIIB left side lung cancer Possible radiation pneumonitis Benign prostatic hypertrophy EKG showing sinus tachycardia at 108 with right bundle branch block and QTC 485. Plan: This is an immunocompromised 80 years old male with past medical history of lung cancer presents with possible radiation pneumonitis versus pneumonia , continue with antibiotics cefepime and Zithromax. Sputum and blood culture and check portcalcitonin. This is a pleasant 80 years old male who presents with dyspnea and view of his lung cancer. Continue with a breathing treatment. Follow-up pulmonary consult. Follow-up hematology/oncology consult Labs and medication were reviewed.. Continue same treatment. Continue with symptomatic treatment. Resume home medication. Monitor lytes and vitals. DVT and GI prophylaxis. Further recommendations depends on the clinical course of the patient DVT prophylaxis: Subcutaneous heparin GI Prophylaxis: Pepcid PT/OT: Pending Prognosis is guarded
[2020-08-15] MEDS ORDERED: methylPREDNISolone SOD SUCCI 125 MG/2 ML VIAL IV STA (14:07)
[2020-08-15] MEDS: methylPREDNISolone SOD SUCCI 125 MG/2 ML VIAL IV SCH ×3 (14:33→23:54)
[2020-08-15] MEDS: CEFEPIME 2 GM in SODIUM CHLORIDE 0.9% 100 ML IVPB SCH (19:55)
[2020-08-15] MEDS: FAMOTIDINE 20 MG/2 ML VIAL IV SCH (20:07)
[2020-08-15] MEDS: HEPARIN SODIUM,PORCINE 5,000 UNIT/ML 1 ML VIAL SQ SCH (20:07)
[2020-08-16] MEDS: CEFEPIME 2 GM in SODIUM CHLORIDE 0.9% 100 ML IVPB SCH ×3 (03:43→20:34)
[2020-08-16] MEDS: methylPREDNISolone SOD SUCCI 125 MG/2 ML VIAL IV SCH ×3 (05:33→17:30)
[2020-08-16] MEDS: IPRATROPIUM-ALBUTEROL 3 ML NEB INHALATION SCH ×4 (07:29→20:21)
--- NOTE | 2020-08-16 09:06 | XR ---
EXAMINATION TYPE: XR chest 2V DATE OF EXAM: 08/16/2020 COMPARISON: Chest x-ray 08/20/2019, CT 08/15/2020, PET/CT 07/07/2020 HISTORY: Pneumonia TECHNIQUE: Frontal and lateral views of the chest are obtained. FINDINGS: Abnormal densities present in the upper lobes bilaterally. No evident pneumothorax or pleu ral effusion. Cardiac mediastinal silhouette is within normal limits. Interstitium somewhat increased . IMPRESSION: Findings may be indicative of pneumonia, findings may be related to patient's known hist ory of lung carcinoma
[2020-08-16] MEDS: FAMOTIDINE 20 MG/2 ML VIAL IV SCH ×2 (09:18→20:33)
[2020-08-16] MEDS: HEPARIN SODIUM,PORCINE 5,000 UNIT/ML 1 ML VIAL SQ SCH ×2 (09:18→20:33)
[2020-08-16] MEDS: SODIUM CHLORIDE 0.9% 1,000 ML IV SCH ×2 (09:19→17:30)
--- NOTE | 2020-08-16 10:18 | P.PN ---
Subjective Progress Note Date: 08/16/20 Principal diagnosis: Shortness of breath, hypoxemia, squamous cell carcinoma of the lung Pleasant 80-year-old male patient a chronic smoker. Wasn't diagnosed having a squamous cell carcinoma of the lung. He initially presented to me in August 2009 with abnormal CAT scan of the chest. He was having cough for almost a year. He went to see his Dr. Cummins and the patient had a chest x-ray that came back abnormal. Following that he was given a CAT scan of the chest that showed a spiculated area of masslike density in the left perihilar area in the superior segment of the left lower lobe segment measuring 3.2 x 2.1 cm in size. There was a second spiculated lesion in the right upper lobe measuring 1.2 x 1 cm. There is underlying emphysema. No significant mediastinal lymphadenopathy with exception of one left hilar lymph node measuring 1.2 cm in size. I performed a navigational bronchoscopy on this patient and the patient was diagnosed having a squamous cell carcinoma of the left upper lobe. He had a left perihilar mass with lymphadenopathy that was biopsied it was consistent with was cell carcinoma. He had another 1.4 cm lesion in the right upper lobe bronchoscopy did not yield any positive results from the right upper lobe and we assume that this is either a metastatic deposit for a synchronous primary. The patient was referred to oncology. He was started on treatment. He receives concurrent chemoradiation therapy which he tolerated well. He lost around 5 pounds. He developed some dysphagia which is mild. He is also having some exertional dyspnea. He has COPD and his FEV1 is no more than of 73% of predicted. He underwent a follow-up PET/CT that was done on 12/09/2019 and the PET/CT showed that the spiculated lesion in the right upper lobe has remained unchanged compared to the previous imaging and was measuring 1.4 x 1.1 cm. As for the left side, there was significant improvement. There was resolution of the enlarged hypermetabolic mediastinal lymphadenopathy and improved left hilar mass. No suspicious nodules appeared other than the ones mentioned. This was consistent with positive partial treatment response. The patient was given immunotherapy in the form of Imfinzi active treatment every 2 weeks and the last treatment was in June 2020.. He was also going to undergo radiosurgery to the right upper lobe. The patient had a subsequent PET scan of the body on 07/10/2020 and the PET scan showed bilateral areas of attenuation within the lungs with metabolic uptake. The right upper lobe showed interval development of an abnormal inc reased attenuation compared to the prior exam and it had progressed. There was some air bronchograms extending to the apex and along the medial aspect of the left upper lobe as well as anterior margin of the pleural surface with some mild uptake. Within the superior segment of the right lower lobe, there was also abnormal peripheral density corresponding with metabolic activity and the SUV of 3.9 and groundglass opacity in the left upper lobe and developed. There was also a left lower lobe mass peripherally showing increased metabolic activity. As such, there was evidence of interval progression. There was also a right lobe of the liver lesion increases in size measuring 6.2 cm in size compared to 3.6 cm in size on previous evaluation. The patient came into the emergency department upon the request of his oncologist because of worsening shortness of breath and hypoxemia. The patient had a temperature 100.6 at home. He was seen at oncology office and he was sent over to the hospital. He was progressively getting more short of breath over the past few months. He has been started on steroids recently and the stated that he had limited response. The patient is short of breath with minimal amount of activity even walking around 10 feet. No leg swelling. No DVTs. No pleurisy. He does have some occasional cough that is nonproductive. His white cell count is at 4.2 with hemoglobin 14.7 and a platelet count of 196, correlation profile is within normal, blood work essentially within normal in terms of his chemical profile and the proBNP level is only at 46 with a troponin of less than 0.01 and the Covid 19 testing came back negative. A CAT scan of the chest was done in the ED that showed no evidence of any pulmonary embolism. There was bilateral groundglass changes in combination with COPD. There was upper lobe irregular areas of consolidation and volume loss mainly in the left perihilar area representing most likely in mass and some right upper lobe o pacity extending to the periphery probably related to radiation pneumonitis. There was a new patchy airspace disease in the posterior right lung base. There was also some subcarinal lymph nodes were small largest being around 1.1 cm in size. Note that the patient's breathing was progressively getting worse as of March 2020. 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 He was started on 40 mg and tapered by 10 mg every 1 week. By the time he went to a lower dose of prednisone, his breathing got worse and for that reason he end up in the hospital today for further investigation. The patient is seen today 08/16/2020 in follow-up on the regular medical floor. He is currently resting quite comfortably in bed. Awake and alert in no acute distress. He states he is breathing easier today compared to yesterday. Maintaining good O2 saturations in the 90s on 2 L/m per nasal cannula. He's been afebrile. Chest x-ray reveals abnormal densities in the upper lobes bilaterally. Suspect some radiation pneumonitis along with noted lung mass. Cannot rule out underlying pneumonia. Pro-calcitonin 0.22. Chronic virus not detected. He remains on antibiotics in the form of cefepime and azithromycin. Continued on bronchodilators, IV Solu-Medrol, heparin for DVT prophylaxis. Objective - Vital Signs Vital signs: Vital Signs Temp 97.3 F L 08/16/20 07:58 Pulse 91 08/16/20 07:58 Resp 16 08/16/20 07:58 BP 128/79 08/16/20 07:58 Pulse Ox 95 08/16/20 07:58 Intake & Output 08/15/20 08/16/20 08/16/20 18:59 06:59 18:59 Weight 81.647 kg Other: # Voids 1 - Exam GENERAL EXAM: Alert, pleasant 80-year-old gentleman, on 2 L nasal cannula, comfortable in no apparent distress. HEAD: Normocephalic. EYES: Normal reaction of pupils, equal size. NOSE: Clear with pink turbinates. THROAT: No erythema or exudates. NECK: No masses, no JVD. CHEST: No chest wall deformity. LUNGS: Equal air entry with few scattered rhonchi of the upper lobe. CVS: S1 and S2 normal with no audible murmur, regular rhythm. ABDOMEN: No hepatosplenomegaly, normal bowel sounds, no guarding or rigidity. SPINE: No scoliosis or deformity SKIN: No rashes CENTRAL NERVOUS SYSTEM: No focal deficits, tone is normal in all 4 extremities. EXTREMITIES: There is no peripheral edema. No clubbing, no cyanosis. Peripheral pulses are intact. - Labs CBC & Chem 7: 08/15/20 09:39 08/15/20 09:39 Labs: Abnormal Lab Results - Last 24 Hours (Table) 08/15/20 Range/Units 09:39 Procalcitonin 0.22 H (0.02-0.09) ng/mL Assessment and Plan Assessment: 1. Squamous cell carcinoma of lung - patient presented in August 2019 with a left upper lobe/perihilar mass with lymphadenopathy in addition to a 1.2 cm lesion in the right upper lobe. The patient currently completed concurrent chemoradiation therapy and the left hilar mass has shown improvement with resolution of the l lymphadenopathy and the finding of the PET scan is considered to be partial positive response. the patient also received radiosurgery regarding the right upper lobe pulmonary nodule which is being treated as a synchronous lesion rather than metastatic. He was treated with Imfinzi on outpatient basis till June 2020. Treatment has been discontinued as the patient was suspected to have ILD related to the medication as the patient developed diffuse interstitial changes and probably will infiltrates. The patient was also given a course of steroids on outpatient basis. C34.90: Malignant neoplasm of unspecified part of unspecified bronchus or lung 2 dyspnea/hypoxemia with progressive worsening in exercise capacity. The carlyle ent had a PET scan on 07/10/2020 indicating possibly metastatic disease with the patient had progression of the lesions especially in the left lower lobe mass which had shown growth and possible postobstructive changes in addition to scattered areas of air bronchograms and some postradiation changes in the right upper lobe. There was also suspicious lesion in the liver measuring 6.2 cm in size. The CTA of the chest that was done today on 08/15/2020 showed an enlarging left lower lobe/left infrahilar mass in addition to post radiation changes in the right upper lobe, new airspace disease in the right lower lobe, and areas of groundglass changes bilaterally. 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 The patient has received steroids on outpatient basis with limited response. 3. chronic obstructive airways disease - spirometry today showed a drop in his lung capacity and FEV1 is down to 73% of predicted. Anoro one inhalation a day and Ventolin 2 puffs on an as-needed basis. 4 sinus tachycardia 5 fever Plan: The patient was seen and evaluated by Dr. 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 Lungs sounds with few scattered rhonchi in the upper lobe. Maintaining good O2 saturations in the 90s on 2 L/m per nasal cannula. I discussed the assessment and plan of care with my nurse practitioner, Lilibeth Khan. I attest to the above note as dictated by her.
[2020-08-16] MEDS: AZITHROMYCIN 500 MG in SODIUM CHLORIDE 0.9% 250 ML IVPB SCH (11:29)
--- NOTE | 2020-08-16 11:48 | P.PN ---
Subjective This is a pleasant 80 years old male with past medical history of left lung lung cancer stage IIIB, benign prostatic hypertrophy. Presents because of dyspnea and chest tightness across his chest for the last 2 months with gradually getting worse. He is a patient of Dr. Cedillo. Patient went to see his oncologist Dr. Ervin for follow-up, 4-6 weeks ago he had PET scan showing inflammatory lung thought secondary to radiation and he was started on high-dose steroids, with Dr. Ervin office he mentioned he has difficulty breathing for the last 2 months with little to offer no phlegm with some chest tightness across the lower chest for the last 2 weeks and he advised him to go to the emergency room. Patient does not use oxygen at home His last chemotherapy and last radiotherapy was in December/2019 He quit smoking about 20 years ago and denies alcohol or illicit drugs. Rectal showing mild tachycardia at 110, he is saturating 97% on 2 L oxygen via nasal cannula and febrile. He has unremarkable CBC, INR, BMP and liver enzymes. Troponin is negative less than 0.012. ProBNP is low at 46. Coronal virus not detected. CTA of the chest showing called COPD with moderate emphysema. No PE. Bilateral upper lobe volume loss and consolidation suspected secondary to radiation therapy and the right lower lobe infrahilar changes secondary to improved radiation pneumonitis. Continue patchy airspace disease at the posterior right base at the present pneumonia without lymphedema. In the emergency room patient got Zithromax and cefepime. Received normal saline at 100 mL per hour 08/16/2020 Patient is breathing at room air with oxygen saturation 94%. However he is a slightly tachypneic when I saw him with a breathing rate about 20-22. With exertion he become more labored. Per minute. He denies chest pain or coughing, only occasional dry cough. Afebrile. Labs are reviewed. Bothcalcitonin is elevated 0.22 CT of the chest and pulmonary input is appreciated, I told the patient the findings of right posterior pulmonary pneumonia, left infrahilar mass suspicious for cancer recurrence. Possible changes from radiation pneumonitis of the right lung. 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 Pulmonary team also recommending bronchoscopy at certain point to evaluation for ALD, and the infrahilar mass as he might need biopsy for both of them. In the meantime he remains on Zithromax, cefepime, so the Medrol and normal saline and 100 mL per hour Review of Systems CONSTITUTIONAL: No fever, no malaise, no fatigue. HEENT: No recent visual problems or hearing problems. Denied any sore throat. CARDIOVASCULAR: No orthopnea, PND, no palpitations, no syncope. PULMONARY: No chest wall tenderness, no hemoptysis. GASTROINTESTINAL: No diarrhea, no nausea, no vomiting, no abdominal pain. Normoactive bowel sounds. NEUROLOGICAL: No headaches, no weakness, no numbness. Active Medications Generic Name Dose Route Start Last Admin Trade Name Freq PRN Reason Stop Dose Admin Albuterol/Ipratropium 3 ml 08/15/20 15:00 08/16/20 11:01 Ipratropium-Albuterol 3 Ml Neb INHALATION 3 ml RT-QID CRYSTAL Administration Albuterol/Ipratropium 3 ml 08/15/20 13:10 Ipratropium-Albuterol 3 Ml Neb INHALATION RT-Q2H PRN Shortness Of Breath Or Wheezing Famotidine 20 mg 08/15/20 21:00 08/16/20 09:18 Famotidine 20 Mg/2 Ml Vial IV 20 mg Q12HR CRYSTAL Administration Heparin Sodium (Porcine) 5,000 unit 08/15/20 21:00 08/16/20 09:18 Heparin Sodium,Porcine 5,000 Unit/Ml 1 Ml Vial SQ 5,000 unit Q12HR CRYSTAL Administration Sodium Chloride 1,000 mls @ 100 mls/hr 08/15/20 12:00 08/16/20 09:19 Saline 0.9% IV 100 mls/hr .Q10H CRYSTAL Administration Cefepime HCl 2 gm/ Sodium 100 mls @ 25 mls/hr 08/15/20 20:00 08/16/20 03:43 Chloride IVPB 25 mls/hr Q8H CRYSTAL Administration Azithromycin 500 mg/ Sodium 250 mls @ 250 mls/hr 08/16/20 12:00 08/16/20 11:29 Chloride IVPB 08/20/20 12:01 250 mls/hr DAILY@1200 CRYSTAL Administration Methylprednisolone Sodium Succinate 60 mg 08/15/20 13:30 08/16/20 11:29 Methylprednisolone Sod Succi 125 Mg/2 Ml Vial IV 60 mg Q6HR CRYSTAL Administration Miscellaneous Information 1 each 08/15/20 11:48 Pneumonia Protocol Utilized 1 Each Misc PO ONCE PRN Per Protocol Objective - Vital Signs Vital signs: Vital Signs Temp 97.3 F L 08/16/20 07:58 Pulse 104 H 08/16/20 11:13 Resp 16 08/16/20 07:58 BP 128/79 08/16/20 07:58 Pulse Ox 94 L 08/16/20 10:30 Intake & Output 08/15/20 08/16/20 08/16/20 18:59 06:59 18:59 Weight 81.647 kg Other: # Voids 1 - Exam GENERAL: The patient is alert and oriented x3, not in any acute distress. Well developed, well nourished. HEENT: Pupils are round and equally reacting to light. EOMI. No scleral icterus. No conjunctival pallor. Normocephalic, atraumatic. No pharyngeal erythema. No thyromegaly. CARDIOVASCULAR: S1 and S2 present. No murmurs, rubs, or gallops. -PULMONARY: Chest is clear to auscultation, no wheezing or crackles. Patient somewhat tachypneic and some mild crepitation the right lower lung ABDOMEN: Soft, nontender, nondistended, normoactive bowel sounds. No palpable organomegaly. MUSCULOSKELETAL: No joint swelling or deformity. EXTREMITIES: No cyanosis, clubbing, or pedal edema. NEUROLOGICAL: Gross neurological examination did not reveal any focal deficits. SKIN: No rashes. No petechiae - Labs CBC & Chem 7: 08/15/20 09:39 08/15/20 09:39 Labs: Abnormal Lab Results - Last 24 Hours (Table) 08/15/20 Range/Units 09:39 Procalcitonin 0.22 H (0.02-0.09) ng/mL Assessment and Plan Assessment: Possible right lower pneumonia Abnormal CT of the chest showing possible interstitial lung disease and infrahilar mass, pulmonary planning for bronchoscopy uncertain stage Stage IIIB left side lung cancer Possible radiation pneumonitis Benign prostatic hypertrophy Plan: This is an immunocompromised 80 years old male with past medical history of lung cancer presents with possible radiation pneumonitis versus pneumonia , continue with antibiotics cefepime and Zithromax. Sputum and blood culture and check portcalcitonin. Continue with a breathing treatment. Follow-up pulmonary consult. Follow-up hematology/oncology consult Labs and medication were reviewed.. Continue same treatment. Continue with symptomatic treatment. Resume home medication. Monitor lytes and vitals. DVT and GI prophylaxis. Further recommendations depends on the clinical course of the patient DVT prophylaxis: Subcutaneous heparin GI Prophylaxis: Pepcid PT/OT: Pending Prognosis is guarded
[2020-08-16 14:35] VITALS: BMI 25.1
[2020-08-16] MEDS ORDERED: LIDOCAINE 1% (10MG/ML) FOR IV START INTRADERMA PRN (15:42)
[2020-08-16] MEDS: LACTATED RINGERS 1,000 ML IV SCH (16:01)
[2020-08-16] MEDS ORDERED: CALCIUM CARBONATE 500 MG CHEWABLE PO PRN (17:33)
[2020-08-17] MEDS: methylPREDNISolone SOD SUCCI 125 MG/2 ML VIAL IV SCH ×2 (01:06→06:11)
[2020-08-17] MEDS: CEFEPIME 2 GM in SODIUM CHLORIDE 0.9% 100 ML IVPB SCH ×3 (03:47→20:47)
[2020-08-17] MEDS: SODIUM CHLORIDE 0.9% 1,000 ML IV SCH ×2 (05:40→16:06)
[2020-08-17] MEDS: IPRATROPIUM-ALBUTEROL 3 ML NEB INHALATION SCH (07:56)
[2020-08-17] MEDS: FAMOTIDINE 20 MG/2 ML VIAL IV SCH ×2 (08:51→20:46)
[2020-08-17] MEDS: HEPARIN SODIUM,PORCINE 5,000 UNIT/ML 1 ML VIAL SQ SCH ×2 (08:52→20:46)
[2020-08-17] MEDS ORDERED: ALPRAZolam 1 MG TAB PO STA (09:18)
--- NOTE | 2020-08-17 09:23 | P.PN ---
Subjective Progress Note Date: 08/17/20 Pleasant 80-year-old male patient a chronic smoker. Wasn't diagnosed having a squamous cell carcinoma of the lung. He initially presented to me in August 2009 with abnormal CAT scan of the chest. He was having cough for almost a year. He went to see his Dr. Cummins and the patient had a chest x-ray that came back abnormal. Following that he was given a CAT scan of the chest that showed a spiculated area of masslike density in the left perihilar area in the superior segment of the left lower lobe segment measuring 3.2 x 2.1 cm in size. There was a second spiculated lesion in the right upper lobe measuring 1.2 x 1 cm. There is underlying emphysema. No significant mediastinal lymphadenopathy with exception of one left hilar lymph node measuring 1.2 cm in size. I performed a navigational bronchoscopy on this patient and the patient was diagnosed having a squamous cell carcinoma of the left upper lobe. He had a left perihilar mass with lymphadenopathy that was biopsied it was consistent with was cell carcinoma. He had another 1.4 cm lesion in the right upper lobe bronchoscopy did not yield any positive results from the right upper lobe and we assume that this is either a metastatic deposit for a synchronous primary. The patient was referred to oncology. He was started on treatment. He receives concurrent chemoradiation therapy which he tolerated well. He lost around 5 pounds. He de veloped some dysphagia which is mild. He is also having some exertional dyspnea. He has COPD and his FEV1 is no more than of 73% of predicted. He underwent a follow-up PET/CT that was done on 12/09/2019 and the PET/CT showed that the spiculated lesion in the right upper lobe has remained unchanged compared to the previous imaging and was measuring 1.4 x 1.1 cm. As for the left side, there was significant improvement. There was resolution of the enlarged hypermetabolic mediastinal lymphadenopathy and improved left hilar mass. No suspicious nodules appeared other than the ones mentioned. This was consistent with positive partial treatment response. The patient was given immunotherapy in the form of Imfinzi active treatment every 2 weeks and the last treatment was in June 2020.. He was also going to undergo radiosurgery to the right upper lobe. The patient had a subsequent PET scan of the body on 07/10/2020 and the PET scan showed bilateral areas of attenuation within the lungs with metabolic uptake. The right upper lobe showed interval development of an abnormal increased attenuation compared to the prior exam and it had progressed. There was some air bronchograms extending to the apex and along the medial aspect of the left upper lobe as well as anterior margin of the pleural surface with some mild uptake. Within the superior segment of the right lower lobe, there was also abnormal peripheral density corresponding with metabolic activity and the SUV of 3.9 and groundglass opacity in the left upper lobe and developed. There was also a left lower lobe mass peripherally showing increased metabolic activity. As such, there was evidence of interval progression. There was also a right lobe of the liver lesion increases in size measuring 6.2 cm in size compared to 3.6 cm in size on previous evaluation. The patient came into the emergency department upon the request of his oncologist because of worsening shortness of breath and hypoxemia. The patient had a temperature 100.6 at home. He was seen at oncology office and he was sent over to the hospital. He was progressively getting more short of breath over the past few months. He has been started on steroids recently and the stated that he had limited response. The patient is short of breath with min imal amount of activity even walking around 10 feet. No leg swelling. No DVTs. No pleurisy. He does have some occasional cough that is nonproductive. His white cell count is at 4.2 with hemoglobin 14.7 and a platelet count of 196, correlation profile is within normal, blood work essentially within normal in terms of his chemical profile and the proBNP level is only at 46 with a troponin of less than 0.01 and the Covid 19 testing came back negative. A CAT scan of the chest was done in the ED that showed no evidence of any pulmonary embolism. There was bilateral groundglass changes in combination with COPD. There was upper lobe irregular areas of consolidation and volume loss mainly in the left perihilar area representing most likely in mass and some right upper lobe opacity extending to the periphery probably related to radiation pneumonitis. There was a new patchy airspace disease in the posterior right lung base. There was also some subcarinal lymph nodes were small largest being around 1.1 cm in size. Note that the patient's breathing was progressively getting worse as of March 2020. 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 He was started on 40 mg and tapered by 10 mg every 1 week. By the time he went to a lower dose of prednisone, his breathing got worse and for that reason he end up in the hospital today for further investigation. The patient is seen today 08/16/2020 in follow-up on the regular medical floor. He is currently resting quite comfortably in bed. Awake and alert in no acute distress. He states he is breathing easier today compared to yesterday. Maintaining good O2 saturations in the 90s on 2 L/m per nasal cannula. He's been afebrile. Chest x-ray reveals abnormal densities in the upper lobes bilaterally. Suspect some radiation pneumonitis along with noted lung mass. Cannot rule out underlying pneumonia. Pro-calcitonin 0.22. Chronic virus not detected. He remains on antibiotics in the form of cefepime and azithromycin. Continued on bronchodilators, IV Solu-Medrol, heparin for DVT prophylaxis. Objective - Vital Signs Vital signs: Vital Signs Temp 97.6 F 08/17/20 07:36 Pulse 113 H 08/17/20 07:36 Resp 20 08/17/20 07:36 BP 165/90 08/17/20 07:36 Pulse Ox 96 08/17/20 07:36 Intake & Output 08/16/20 08/17/20 08/17/20 18:59 06:59 18:59 Intake Total 200 Balance 200 Weight 81.647 kg Intake: Oral 200 Other: Voiding Method Toilet # Voids 3 3 - Exam GENERAL EXAM: Alert, pleasant 80-year-old gentleman, on 2 L nasal cannula, comfortable in no apparent distress. HEAD: Normocephalic. EYES: Normal reaction of pupils, equal size. NOSE: Clear with pink turbinates. THROAT: No erythema or exudates. NECK: No masses, no JVD. CHEST: No chest wall deformity. LUNGS: Equal air entry with few scattered rhonchi of the upper lobe. CVS: S1 and S2 normal with no audible murmur, regular rhythm. ABDOMEN: No hepatosplenomegaly, normal bowel sounds, no guarding or rigidity. SPINE: No scoliosis or deformity SKIN: No rashes CENTRAL NERVOUS SYSTEM: No focal deficits, tone is normal in all 4 extremities. EXTREMITIES: There is no peripheral edema. No clubbing, no cyanosis. Peripheral pulses are intact. - Labs CBC & Chem 7: 08/15/20 09:39 03 09:39 Labs: Microbiology - Last 24 Hours (Table) 08/15/20 09:22 Blood Culture - Preliminary Blood No Growth after 24 hours 08/15/20 09:39 Blood Culture - Preliminary Blood No Growth after 24 hours Assessment and Plan Plan: 1. Squamous cell carcinoma of lung - patient presented in August 2019 with a left upper lobe/perihilar mass with lymphadenopathy in addition to a 1.2 cm lesion in the right upper lobe. The patient currently completed concurrent chemoradiation therapy and the left hilar mass has shown improvement with resolution of the l lymphadenopathy and the finding of the PET scan is considered to be partial positive response. the patient also received radiosurgery regarding the right upper lobe pulmonary nodule which is being treated as a synchronous lesion rather than metastatic. He was treated with Imfinzi on outpatient basis till June 2020. Treatment has been discontinued as the patient was suspected to have ILD related to the medication as the patient developed diffuse interstitial changes and probably will infiltrates. The patient was also given a course of steroids on outpatient basis. C34.90: Malignant neoplasm of unspecified part of unspecified bronchus or lung 2 dyspnea/hypoxemia with progressive worsening in exercise capacity. The patient had a PET scan on 07/10/2020 indicating possibly metastatic disease with the patient had progression of the lesions especially in the left lower lobe mass which had shown growth and possible postobstructive changes in addition to scattered areas of air bronchograms and some postradiation changes in the right upper lobe. There was also suspicious lesion in the liver measuring 6.2 cm in size. The CTA of the chest that was done today on 08/15/2020 showed an enlarging left lower lobe/left infrahilar mass in addition to post radiation changes in the right upper lobe, new airspace disease in the right lower lobe, and areas of groundglass changes bilaterally. 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 The patient has received steroids on outpatient basis with limited response. 3. chronic obstructive airways disease - spirometry today showed a drop in his lung capacity and FEV1 is down to 73% of predicted. Anoro one inhalation a day and Ventolin 2 puffs on an as-needed basis. 4 sinus tachycardia 5 fever, recovered Plan: On today's evaluation, the patient has relatively clear lungs without any ongoin g bronchospasm and wheezing. 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 The patient has responded to steroids, yet he has developed some increased anxiety and tachycardia and restlessness related to systemic steroids especially with a higher dose of IV Solu Medrol. I'm going to stop the IV Solu Medrol and put the patient prednisone burst taper starting with 30 mg and this will be a slow taper over the next several weeks. We'll monitor for any side effects. We'll given a dose of Xanax 1 mg by mouth 1 right now. We'll proceed with a bronchoscopy for airway inspection and the bronchioloalveolar lavage of the left lung to rule out any possible discharge home following his procedure.
--- NOTE | 2020-08-17 09:32 | XR ---
EXAMINATION TYPE: XR chest 1V portable DATE OF EXAM: 08/17/2020 CLINICAL HISTORY: Difficulty breathing progress study. History of lung cancer. TECHNIQUE: Single AP portable upright view of the chest is obtained. COMPARISON: Chest x-ray from one day earlier hand older studies. CTA chest August 15, 2020. PET CT Octo 2019. FINDINGS: There is background chronic emphysematous change with areas of increased opacity and scarr ing in the upper lungs bilaterally and right lung base redemonstrated. Areas of increased opacity in the periphery in the left are more prominent. Cardiac silhouette size is stable and within normal dietrich its. IMPRESSION: Chronic of predominance and pulmonary fibrotic changes with areas of acute infiltrate dif ficult to exclude particularly in the periphery of the left lung, this is more prominent from most re cent chest x-ray.
[2020-08-17 09:50] LABS: African American GFR (CKD) 99.2 (60.0-200.0); BUN/Creat Ratio 31.25 Ratio (12.00-20.00); Calcium 8.7 mg/dL (8.7-10.3); Magnesium 2.1 mg/dL (1.5-2.4); Non-African American GFR(CKD) 85.6 (60.0-200.0); Potassium 4.6 mmol/L (3.5-5.5)
--- NOTE | 2020-08-17 11:21 | P.CRDCN ---
History of Present Illness Consult date: 08/17/20 History of present illness: HISTORY OF PRESENT ILLNESS: This is a 72-year-old male with a past medical history significant for squamous cell carcinoma of the lung and COPD. 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 We have been asked to see the patient in consultation for tachycardia. Patient reports a history of lung cancer diagnosed in August 2019. He states he underwent chemo and radiation. Patient had a PET scan in June 2020 revealing progression of his lung lesions and also suspicious lesion in the liver measuring 6.2 cm. Patient also had a CTA of the chest done on 08/15/2020 revealing enlarging left lower lobe/left infrahilar mass in addition to post radiation changes in the right upper lobe, new airspace disease in the right lower lobe, and areas of groundglass changes bilaterally. 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 CTA was negative for pulmonary embolism. Patient is scheduled for bronchoscopy today with Dr. Vazquez. Patient examined this morning. He is sitting up in the chair. Patient states his dyspnea is stable at this time. He denies chest pain or pressure. He denies any palpitations. Patient denies having any cardiac history and states the only thing he has ever been told is that sometimes his blood pressure runs on the low side. He denies any palpitations. EKGs reviewed revealing sinus tachycardia with right bundle branch block. Telemetry tracings reviewed without evidence of arrhythmia. Patient was on IV steroids which have since been transitioned to oral. Patient states he was feeling a lot of anxiety and was started on Xanax. He states his anxiety has improved since the addition of Xanax. Patient's heart rate is currently 106 per monitoring coordinator. EKG reveals sinus tachycardia with right bundle branch block Chest xray pulmonary fibrotic changes with areas of acute infiltrate difficult to exclude particularly in the periphery of the left lung which is more prominent from recent chest x-ray Laboratory data: WBC 4.2, Hemoglobin 14.7, Platelet count 197, Sodium 142, Potassium 4.6, BUN 25, Creatinine 0.8, Troponin negative 3, BNP 46 Current home cardiac medications include none REVIEW OF SYSTEMS: At the time of my exam: CONSTITUTIONAL: Denies fever or chills. HEENT: Denies blurred vision, vision changes, or eye pain. Denies hemoptysis CARDIOVASCULAR: Denies chest pain. Denies orthopnea. Denies PND. Denies palpitations RESPIRATORY: Reports mild shortness of breath. GASTROINTESTINAL: Denies abdominal pain. Denies nausea or vomiting. HEMATOLOGIC: Denies bleeding disorders. GENITOURINARY: Denies any blood in urine. SKIN: Denies pruitis. Denies rash. PHYSICAL EXAM: VITAL SIGNS: Reviewed. GENERAL: Well-developed in no acute distress. HEENT: Head is normocephalic. Pupils are equal, round. Sclerae anicteric. Mucous membranes of the mouth are moist. Neck supple. No JVD or thyromegaly LUNGS: Respirations even and unlabored. Lungs diminished bilaterally. HEART: Regular rate and rhythm. S1 and S2 heard. ABDOMEN: Soft. Nondistended. Nontender. EXTREMITIES: Normal range of motion. No clubbing or cyanosis. Peripheral pulses intact. No lower extremity edema NEUROLOGIC: Awake and alert. Oriented x 3. ASSESSMENT: Squamous cell carcinoma of the lung Possible metastatic disease, PET scan revealing liver lesion COPD Tachycardia, suspect multifactorial in etiology due to anxiety and lung CA PLAN: CTA obtained and ruled out PE Check TSH Obtain 2D echo to assess cardiac structure and function Continue telemetry monitoring Continue to monitor heart rate now that patient has been transitioned to oral steroids and initiated on Xanax. Will hold off on initiating beta christina therapy at this time secondary to pulmonary status Further recommendations pending patient course Nurse practitioner note has been reviewed by physician. Signing provider agrees with the documented findings, assessment, and plan of care. Past Medical History Past Medical History: Asthma, Cancer, COPD, GERD/Reflux, Prostate Disorder Additional Past Medical History / Comment(s): History of lung cancer with squamous cell Carcinoma of the lung, COPD with an FEV1 of 74% of predicted, BPH, History of Any Multi-Drug Resistant Organisms: None Reported Past Surgical History: Tonsillectomy Additional Past Surgical History / Comment(s): lung biopsy Past Anesthesia/Blood Transfusion Reactions: No Reported Reaction Past Psychological History: No Psychological Hx Reported Smoking Status: Former smoker Past Alcohol Use History: None Reported Past Drug Use History: None Reported - Past Family History Mother Family Medical History: No Reported History Father Family Medical History: Deep Vein Thrombosis (DVT) Additional Family Medical History / Comment(s): sepsis Medications and Allergies Home Medications Medication Instructions Recorded Confirmed Type Ascorbic Acid [Vitamin C] 500 mg PO DAILY 08/18/19 08/15/20 History Multivitamins, Thera [Multivitamin 1 tab PO DAILY 08/18/19 08/15/20 History (formulary)] Tamsulosin [Flomax] 0.4 mg PO HS 08/18/19 08/15/20 History Ibuprofen [Motrin Ib] 400 mg PO DAILY PRN 08/15/20 08/15/20 History Allergies Allergy/AdvReac Type Severity Reaction Status Date / Time No Known Allergies Allergy Verified 08/15/20 11:00 Physical Exam Vitals: Vital Signs Temp Pulse Pulse Resp BP Pulse Ox 08/17/20 07:36 97.6 F 113 H 20 165/90 96 08/17/20 02:25 97.7 F 109 H 18 140/78 94 L 08/16/20 20:38 119 H 08/16/20 20:22 120 H 91 L 08/16/20 19:45 97.6 F 111 H 16 127/68 93 L 08/16/20 19:32 16 08/16/20 16:24 97.4 F L 122 H 22 121/73 91 L 08/16/20 15:45 126 H 08/16/20 15:34 120 H 08/16/20 14:00 98.0 F 123 H 20 134/82 91 L 08/16/20 11:13 104 H Intake and Output 08/16/20 08/17/20 08/17/20 22:59 06:59 14:59 Other: Voiding Method Toilet Toilet # Voids 1 3 Results 08/15/20 09:39 08/17/20 06:05 Cardiac Enzymes 08/17/20 08/17/20 Range/Units 06:05 09:18 Troponin I <0.012 0.020 (0.000-0.034) ng/mL Comprehensive Metabolic Panel 08/17/20 Range/Units 06:05 Sodium 142 (135-145) mmol/L Potassium 4.6 (3.5-5.5) mmol/L Chloride 109 (96-109) mmol/L Carbon Dioxide 22.0 (21.6-31.8) mmol/L BUN 25.0 (9.0-27.0) mg/dL Creatinine 0.8 (0.6-1.5) mg/dL Glucose 137 H (70-110) mg/dL Calcium 8.7 (8.7-10.3) mg/dL Current Medications Generic Name Dose Route Start Last Admin Trade Name Amanq PRN Reason Stop Dose Admin Albuterol Sulfate 2.5 mg 08/17/20 12:00 Albuterol Nebulized 2.5 Mg/3 Ml INHALATION RT-QID CRYSTAL Calcium Carbonate/Glycine 1,000 mg 08/16/20 17:33 08/16/20 17:36 Calcium Carbonate 500 Mg Chewable PO 1,000 mg QID PRN Administration Heartburn Famotidine 20 mg 08/15/20 21:00 08/17/20 08:51 Famotidine 20 Mg/2 Ml Vial IV 20 mg Q12HR CRYSTAL Administration Heparin Sodium (Porcine) 5,000 unit 08/15/20 21:00 08/17/20 08:52 Heparin Sodium,Porcine 5,000 Unit/Ml 1 Ml Vial SQ Not Given Q12HR CRYSTAL Sodium Chloride 1,000 mls @ 100 mls/hr 08/15/20 12:00 08/17/20 05:40 Saline 0.9% IV Not Given .Q10H CRYSTAL Cefepime HCl 2 gm/ Sodium 100 mls @ 25 mls/hr 08/15/20 20:00 08/17/20 03:47 Chloride IVPB 25 mls/hr Q8H CRYSTAL Administration Azithromycin 500 mg/ Sodium 250 mls @ 250 mls/hr 08/16/20 12:00 08/16/20 11:29 Chloride IVPB 08/20/20 12:01 250 mls/hr DAILY@1200 CRYSTAL Administration Lactated Ringer's 1,000 mls @ 20 mls/hr 08/16/20 15:45 08/16/20 16:01 Lactated Ringers IV Not Given .Q24H CRYSTAL Lidocaine HCl 0.1 ml 08/16/20 15:42 Lidocaine 1% (10mg/Ml) For Iv Start INTRADERMA PER PROTOCOL PRN IV Start Miscellaneous Information 1 each 08/15/20 11:48 Pneumonia Protocol Utilized 1 Each Misc PO ONCE PRN Per Protocol Prednisone 30 mg 08/18/20 09:00 Prednisone 10 Mg Tab PO DAILY CRYSTAL Intake and Output 08/16/20 08/17/20 08/17/20 22:59 06:59 14:59 Other: Voiding Method Toilet Toilet # Voids 1 3 08/15/20 09:39 08/17/20 06:05
[2020-08-17] MEDS: ALBUTEROL NEBULIZED 2.5 MG/3 ML INHALATION SCH ×3 (11:31→21:15)
--- NOTE | 2020-08-17 12:00 | ECHOF ---
Referral Reason:LV function MEASUREMENTS -------- HEIGHT: 180.3 cm WEIGHT: 82.1 kg BP: RVIDd: 3.0 cm (< 3.3) IVSd: 1.1 cm (0.6 - 1.1) LVIDd: 3.7 cm (3.9 - 5.3) LVPWd: 1.1 cm (0.6 - 1.1) IVSs: 1.5 cm LVIDs: 2.6 cm LVPWs: 1.5 cm LA Diam: 3.2 cm (2.7 - 3.8) LAESV Index (A-L): 25.17 ml/m Ao Diam: 3.2 cm (2.0 - 3.7) AV Cusp: 1.8 cm (1.5 - 2.6) MV EXCURSION: 12.108 mm (> 18.000) MV EF SLOPE: 103 mm/s (70 - 150) EPSS: 1.4 cm MV E Marquez: 1.66 m/s MV DecT: 80 ms MV A Marquez: 0.56 m/s MV E/A Ratio: 2.98 AR PHT: 368 ms RAP: 5.00 mmHg RVSP: 41.73 mmHg FINDINGS -------- Sinus rhythm. This was a technically adequate study. The left ventricular size is normal. There is borderline concentric left ventricular hypertrophy. Overall left ventricular systolic function is normal with, an EF between 55 - 60 %. The right ventricle is normal in size. Normal LA size by volume 22+/-6 ml/m2. The right atrium is normal in size. Interatrial and interventricular septum intact. There is mild aortic valve sclerosis. There is mild aortic regurgitation. The mitral valve leaflets are mildly thickened. Mild mitral annular calcification present. Mild-t o-moderate mitral regurgitation is present. The peak and mean MV gradients are 21.60mmHg 6.22mmHg as measured by doppler. Mild tricuspid regurgitation present. There is mild pulmonary hypertension. The right ventricular systolic pressure, as measured by Doppler, is 41.73mmHg. Trace/mild (physiologic) pulmonic regurgitation. The aortic root size is normal. Normal inferior vena cava with normal inspiratory collapse consistent with estimated right atrial pre ssure of 5 mmHg. There is no pericardial effusion. CONCLUSIONS -------- 1. The left ventricular size is normal. 2. There is borderline concentric left ventricular hypertrophy. 3. Overall left ventricular systolic function is normal with, an EF between 55 - 60 %. 4. There is mild aortic valve sclerosis. 5. There is mild aortic regurgitation. 6. The mitral valve leaflets are mildly thickened. 7. Mild mitral annular calcification present. 8. [id number] mitral regurgitation is present. 9. The peak and mean MV gradients are 21.60mmHg 6.22mmHg as measured by doppler. 10. Mild tricuspid regurgitation present. 11. There is mild pulmonary hypertension. 12. The right ventricular systolic pressure, as measured by Doppler, is 41.73mmHg. 13. Trace/mild (physiologic) pulmonic regurgitation. 14. There is no pericardial effusion. SPECIAL EDUCATION PARA PROFESSIONAL: ANN Renner
[2020-08-17] MEDS: AZITHROMYCIN 500 MG in SODIUM CHLORIDE 0.9% 250 ML IVPB SCH (12:01)
[2020-08-17] MEDS ORDERED: LIDOCAINE 1% INJ 10MG/ML (20 ML MDV) ONE (12:47)
[2020-08-17] MEDS ORDERED: PROPOFOL 10 MG/ML 20 ML VIAL IV ONE (12:47)
[2020-08-17] MEDS ORDERED: SUCCINYLCHOLINE CHLORIDE 100 MG/5 ML SYR IV ONE (12:47)
[2020-08-17] MEDS ORDERED: fentaNYL (PF) 50 MCG/ML 2 ML AMP ONE (12:47)
--- NOTE | 2020-08-17 12:47 | P.PN ---
Subjective Progress Note Date: 08/17/20 Principal diagnosis: Hypoxia Increased shortness of breath during conversation. He is very eager to go home. Objective - Vital Signs Vital signs: Vital Signs Temp 97.6 F 08/17/20 07:36 Pulse 108 H 08/17/20 11:42 Resp 16 08/17/20 12:09 BP 165/90 08/17/20 07:36 Pulse Ox 94 L 08/17/20 12:09 Intake & Output 08/16/20 08/17/20 08/17/20 18:59 06:59 18:59 Intake Total 200 Balance 200 Weight 81.647 kg Intake: Oral 200 Other: Voiding Method Toilet Toilet # Voids 3 3 - Constitutional General appearance: Present: cooperative, no acute distress - EENT Eyes: Present: EOMI, PERRLA ENT: Present: NA/AT, normal oropharynx - Neck Neck: Present: normal ROM - Respiratory Details: Increased respiratory effort noted - Cardiovascular Heart rate: 112 - Gastrointestinal General gastrointestinal: Present: normal bowel sounds, soft - Integumentary Integumentary: Present: pale - Neurologic Neurologic: Present: CNII-XII intact - Musculoskeletal Musculoskeletal: Present: gait normal - Psychiatric Psychiatric: Present: A&O x's 3, appropriate affect, intact judgment & insight - Labs CBC & Chem 7: 08/15/20 09:39 08/17/20 06:05 Labs: Abnormal Lab Results - Last 24 Hours (Table) 08/17/20 Range/Units 06:05 BUN/Creatinine Ratio 31.25 H (12.00-20.00) Ratio Glucose 137 H (70-110) mg/dL Microbiology - Last 24 Hours (Table) 08/15/20 09:22 Blood Culture - Preliminary Blood No Growth after 48 hours 08/15/20 09:39 Blood Culture - Preliminary Blood No Growth after 48 hours Assessment and Plan Plan: Assessment and Recommendations: 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 Also mentioned was suspicious liver lesions (6.2cm). - CT Chest 08/15 (CTA) - Reconfirms enlarging left lower lobe mass, as well as, post radiation Right Upper Lobe Changes. Appears most consistent with immune related treatment effect. Acute on Chronic Hypoxic Respiratory Insufficiency: - Suspicion of Interstitial lung disease related to recent immune therapy plus/minus radiation pneumonitis. Status Post Steroid Course as outpatient and Imfinzi treatment Discontinued. Minimal response to steroid course. - Pulmonary team is following - Oxygenating greater than 90% on Room air at this time, although with increased effort with minimal exertion - Repeat course of high dose steroids per pulm, add PPI. - Pulmonary planning Bronchoscopy to further evaluate picture.
[2020-08-17] MEDS ORDERED: IV FLUID CONTINUATION 1,000 ML IV ONE (12:54)
--- NOTE | 2020-08-17 13:22 | P.PCN ---
Date of Procedure: 08/17/20 Preoperative Diagnosis: bilateral groundglass pulmonary infiltrates, rule out infection, rule out immunotherapy diffuse interstitial lung disease/pneumonitis. Postoperative Diagnosis: bilateral groundglass pulmonary infiltrates, rule out infection, rule out immunotherapy diffuse interstitial lung disease/pneumonitis. Procedure(s) Performed: Bronchoscopy, bronchioloalveolar lavage of the lingula, bronchioloalveolar lavage of the left lower lobe, transbronchial brushing of the posterior and the superior segment of the left lower lobe Anesthesia: ANNITA Surgeon: Tejas Vazquez Va Underwriter #1: Sofia Davies Estimated Blood Loss (ml): 0 Pathology: other Condition: stable Disposition: floor Operative Findings: This is a flexible bronchoscopy that was done in the endoscopy suite. The patient presented with worsening shortness of breath and bilateral pulmonary groundglass infiltrates in addition to various has she masslike pulmonary lesions and the left lower lobe and the right upper lobe with known history of squamous cell carcinoma of the lung. We will and radiation therapy treatment and post immunotherapy. Procedure was done to rule out infections. Procedure was also done to rule out any endobronchial tumor knowing that there was some abnormalities noted on the CAT scan of the chest This procedure was done under general anesthesia. The patient was intubated by [employer] and the patient was given a #8 orotracheal tube. An adapter was attached to the ANIVAL and following that the flexible bronchoscope was introduced through the tube down to the lower trachea. The tip of the ET tube was seen around 3 cm above the sasha. Distal trachea and the main sasha was normal limits. The bronchoscope was then removed today right-sided examination of the right mainstem bronchus, right upper lobe bronchus, bronchus intermedius and the right middle lobe bronchus and the right lower lobe bronchus intermedius stent segments of the right lung were patent within normal limits. The bronchoscope was removed to the left and the left mainstem bronchus was patent. There was a indentation of the superior wall of the left mainstem bronchus and this accounted for the abnormality that was seen on the CAT scan of the chest. Upon careful inspection, there was no evidence of any endobronchial tumor occupying the left mainstem bronchus. Bronchoscope was moved to the left upper lobe where the lingular segments of the left upper lobe apical posterior and anterior segments were noted and there were patent and within normal limits. Then the bronchoscope was moved to the left lower lobe. The posterior and this appears segment was somewhat atelectatic. The various segments were inspected and there was some rest or secretions and records material extubating within the airway. The anterior and the lateral segments were also inspected and there were patent. We did not appreciate any endobronchial growth or tumor in these segments. Nevertheless, we had a suspicion that there may be something in the posterior or superior segment and for that reason and the bronchial brushing was done under direct visualization. Following that, bronchioloalveolar lavage of the left lower lobe posterior segment and the left upper lobe lingular superior segment was done. A total of 100 mL of fluid was infused in both and the aspirate was nonbloody and was in the order of 25-30 mL. The patient tolerated the procedure well without any complications. Bronchoscope was removed. The patient was extubated and following that the patient was transferred recovery in stable condition. The lavage collected from the left upper lobe lingular segment of the left lower lobe posterior segment will be sent for microbial cultures and analysis. We'll also check for cytology for any malignancy. Endobronchial brushings of the left lower lobe posterior and superior segment was also done and this will be sent for cytologic evaluation.
--- NOTE | 2020-08-17 13:23 | P.PN ---
Subjective This is a pleasant 80 years old male with past medical history of left lung lung cancer stage IIIB, benign prostatic hypertrophy. Presents because of dyspnea and chest tightness across his chest for the last 2 months with gradually getting worse. He is a patient of Dr. Cedillo. Patient went to see his oncologist Dr. Ervin for follow-up, 4-6 weeks ago he had PET scan showing inflammatory lung thought secondary to radiation and he was started on high-dose steroids, with Dr. Ervin office he mentioned he has difficulty breathing for the last 2 months with little to offer no phlegm with some chest tightness across the lower chest for the last 2 weeks and he advised him to go to the emergency room. Patient does not use oxygen at home His last chemotherapy and last radiotherapy was in December/2019 He quit smoking about 20 years ago and denies alcohol or illicit drugs. Rectal showing mild tachycardia at 110, he is saturating 97% on 2 L oxygen via nasal cannula and febrile. He has unremarkable CBC, INR, BMP and liver enzymes. Troponin is negative less than 0.012. ProBNP is low at 46. Coronal virus not detected. CTA of the chest showing called COPD with moderate emphysema. No PE. Bilateral upper lobe volume loss and consolidation suspected secondary to radiation therapy and the right lower lobe infrahilar changes secondary to improved radiation pneumonitis. Continue patchy airspace disease at the posterior right base at the present pneumonia without lymphedema. In the emergency room patient got Zithromax and cefepime. Received normal saline at 100 mL per hour 08/16/2020 Patient is breathing at room air with oxygen saturation 94%. However he is a slightly tachypneic when I saw him with a breathing rate about 20-22. With exertion he become more labored. Per minute. He denies chest pain or coughing, only occasional dry cough. Afebrile. Labs are reviewed. Bothcalcitonin is elevated 0.22 CT of the chest and pulmonary input is appreciated, I told the patient the findings of right posterior pulmonary pneumonia, left infrahilar mass suspicious for cancer recurrence. Possible changes from radiation pneumonitis of the right lung. 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 Pulmonary team also recommending bronchoscopy at certain point to evaluation for ALD, and the infrahilar mass as he might need biopsy for both of them. In the meantime he remains on Zithromax, cefepime, so the Medrol and normal saline and 100 mL per hour 08/17/2020 This is a pleasant 80 years old male who presents with dyspnea and CAT scan of the chest of several lesions are suspected including the right posterior pneumonia. Also pulmonary team are planning for bronchoscopy to rule out ALD related to immunotherapy and possible left into the hilar lesion concerning for recurrent lung cancer. This morning patient was complaining of from increasing shortness of breath, repeat chest x-ray showing same findings. IV fluids were held for now. Patient was sitting in chair, awake. He was educated wanted to leave after the bronchoscopy. I explained for the patient the risks of leaving the hospital AGAINST MEDICAL ADVICE including but not limited to the risk of respiratory failure, organ dysfunction, Denies chest pain, he has little dry cough. He is saturating 94% 2 L oxygen via nasal cannula BMP and CBC are stable. He is currently kept on some of September 60 mg and Zithromax with cefepime Yesterday evening he developed tachycardia around 120, EKG was done showing sinus tachycardia at 125 with right bundle branch block and QTC 487. No significant ST-T changes. I consult cardiology team and continue with telemetry Review of Systems CONSTITUTIONAL: No fever, no malaise, no fatigue. HEENT: No recent visual problems or hearing problems. Denied any sore throat. CARDIOVASCULAR: No orthopnea, PND, no palpitations, no syncope. PULMONARY: No chest wall tenderness, no hemoptysis. GASTROINTESTINAL: No diarrhea, no nausea, no vomiting, no abdominal pain. Normoactive bowel sounds. NEUROLOGICAL: No headaches, no weakness, no numbness. Active Medications Generic Name Dose Route Start Last Admin Trade Name Freq PRN Reason Stop Dose Admin Albuterol/Ipratropium 3 ml 08/15/20 15:00 08/16/20 11:01 Ipratropium-Albuterol 3 Ml Neb INHALATION 3 ml RT-QID CRYSTAL Administration Albuterol/Ipratropium 3 ml 08/15/20 13:10 Ipratropium-Albuterol 3 Ml Neb INHALATION RT-Q2H PRN Shortness Of Breath Or Wheezing Famotidine 20 mg 08/15/20 21:00 08/16/20 09:18 Famotidine 20 Mg/2 Ml Vial IV 20 mg Q12HR CRYSTAL Administration Heparin Sodium (Porcine) 5,000 unit 08/15/20 21:00 08/16/20 09:18 Heparin Sodium,Porcine 5,000 Unit/Ml 1 Ml Vial SQ 5,000 unit Q12HR CRYSTAL Administration Sodium Chloride 1,000 mls @ 100 mls/hr 08/15/20 12:00 08/16/20 09:19 Saline 0.9% IV 100 mls/hr .Q10H CRYSTAL Administration Cefepime HCl 2 gm/ Sodium 100 mls @ 25 mls/hr 08/15/20 20:00 08/16/20 03:43 Chloride IVPB 25 mls/hr Q8H CRYSTAL Administration Azithromycin 500 mg/ Sodium 250 mls @ 250 mls/hr 08/16/20 12:00 08/16/20 11:29 Chloride IVPB 08/20/20 12:01 250 mls/hr DAILY@1200 CRYSTAL Administration Methylprednisolone Sodium Succinate 60 mg 08/15/20 13:30 08/16/20 11:29 Methylprednisolone Sod Succi 125 Mg/2 Ml Vial IV 60 mg Q6HR CRYSTAL Administration Miscellaneous Information 1 each 08/15/20 11:48 Pneumonia Protocol Utilized 1 Each Misc PO ONCE PRN Per Protocol Objective - Vital Signs Vital signs: Vital Signs Temp 97.6 F 08/17/20 07:36 Pulse 108 H 08/17/20 11:42 Resp 16 08/17/20 12:09 BP 165/90 08/17/20 07:36 Pulse Ox 94 L 08/17/20 12:09 Intake & Output 08/16/20 08/17/20 08/17/20 18:59 06:59 18:59 Intake Total 200 Balance 200 Weight 81.647 kg Intake: Oral 200 Other: Voiding Method Toilet Toilet # Voids 3 3 - Exam GENERAL: The patient is alert and oriented x3, not in any acute distress. Well developed, well nourished. HEENT: Pupils are round and equally reacting to light. EOMI. No scleral icterus. No conjunctival pallor. Normocephalic, atraumatic. No pharyngeal erythema. No thyromegaly. CARDIOVASCULAR: S1 and S2 present. No murmurs, rubs, or gallops. -PULMONARY: Chest is clear to auscultation, no wheezing or crackles. Patient somewhat tachypneic and some mild crepitation the right lower lung ABDOMEN: Soft, nontender, nondistended, normoactive bowel sounds. No palpable organomegaly. MUSCULOSKELETAL: No joint swelling or deformity. EXTREMITIES: No cyanosis, clubbing, or pedal edema. NEUROLOGICAL: Gross neurological examination did not reveal any focal deficits. SKIN: No rashes. No petechiae - Labs CBC & Chem 7: 08/15/20 09:39 08/17/20 06:05 Labs: Abnormal Lab Results - Last 24 Hours (Table) 08/17/20 Range/Units 06:05 BUN/Creatinine Ratio 31.25 H (12.00-20.00) Ratio Glucose 137 H (70-110) mg/dL Microbiology - Last 24 Hours (Table) 08/15/20 09:22 Blood Culture - Preliminary Blood No Growth after 48 hours 08/15/20 09:39 Blood Culture - Preliminary Blood No Growth after 48 hours Assessment and Plan Assessment: Possible right lower pneumonia Abnormal CT of the chest showing possible interstitial lung disease and infrahilar mass, pulmonary planning for bronchoscopy uncertain stage Stage IIIB left side lung cancer Possible radiation pneumonitis Benign prostatic hypertrophy Plan: This is an immunocompromised 80 years old male with past medical history of lung cancer presents with possible radiation pneumonitis versus pneumonia , continue with antibiotics cefepime and Zithromax. Continue with steroids. Sputum and blood culture Patient the plan for bronchoscopy by pulmonary team, Follow-up pulmonary consult. Follow-up hematology/oncology consult . Follow-up cartilage consults recommendation Labs and medication were reviewed.. Continue same treatment. Continue with symptomatic treatment. Resume home medication. Monitor lytes and vitals. DVT and GI prophylaxis. Further recommendations depends on the clinical course of the patient DVT prophylaxis: Subcutaneous heparin GI Prophylaxis: Pepcid PT/OT: Pending Prognosis is guarded
[2020-08-17] MEDS ORDERED: RX INFO: IV CONTRAST WAS GIVEN 1 EACH MISC MISCELLANE PRN (13:59)
[2020-08-17] MEDS ORDERED: ALPRAZolam 0.5 MG TAB PO PRN (15:18)
--- NOTE | 2020-08-17 15:23 | CT ---
EXAMINATION TYPE: CT brain w con DATE OF EXAM: 08/17/2020 COMPARISON: MR brain 09/24/2019 HISTORY: AMS, dyspnea CT DLP: 1099.4 mGycm Automated exposure control for dose reduction was used. CONTRAST: CT scan of the head is performed with IV Contrast, patient injected with 100 mL of Isovue 300. FINDINGS: There is questionable area of abnormal enhancement at the inferior left cerebellar hemisphere, sagitt al image #40, coronal image #49 and axial image 18. The ventricles and sulci are within normal limit s in size. There are basal ganglia calcifications. The globes are intact and the visualized sinuses are clear. IMPRESSION: Question abnormal enhancement inferior left cerebellar hemisphere, brain MRI may be of benefit. Age-r elated changes of atrophy and chronic small vessel ischemia.
[2020-08-17] MEDS: LACTATED RINGERS 1,000 ML IV SCH (16:07)
[2020-08-17 16:09] LABS: Appearance,BF Hazy; Nucleated Cells, Body Fluid 40 /uL; RBC, Body Fluid 4530 /uL
[2020-08-17 16:14] LABS: Mononuclear WBC,Body Fluid 79 %; Polynuclear WBC,Body Fluid 21 %; Total Cells Counted,Body Fluid 100
[2020-08-17] MEDS: PANTOPRAZOLE 40 MG TABLET PO SCH (16:52)
--- NOTE | 2020-08-17 20:54 | P.CONS ---
History of Present Illness - Reason for Consult Consult date: 08/15/20 Lung Cancer status post chemo/rads and immune therapy Requesting physician: Phan Mcmullen - Chief Complaint Respiratory insufficiency/pneumonitis - History of Present Illness Delayed entry due to inability to log in due to delay in [employer] server Bhavin is a 80 year old male patient of primary oncologist Dr. Sanders who is under our care for the diagnosis and treatment of squamous cell carcinoma of the lung. Initial presentation in August 2019 after abnrmality was found on CT chest. CAT scan of the chest that showed a spiculated area of masslike density in the left perihilar area in the superior segment of the left lower lobe segment measuring 3.2 x 2.1 cm in size. There was a second spiculated lesion in the right upper lobe measuring 1.2 x 1 cm. There is underlying emphysema. No significant mediastinal lymphadenopathy with exception of one left hilar lymph node measuring 1.2 cm in size. He followed with pulmonology who performed bronchoscopy and biopsy which resulted with a diagnosis squamous cell carcinoma of the left upper lobe. A tissue biopsy also taken of lymphadenopathy in addition to left perihilar mass both resulting in one of the same. He was started on concurrent radiation therapy and chemotherapy, followed by immune therapy with imfinzi was was later discontinued (June 2020) for concern of immune related effects - pneumonitis. Associated symptoms included dysphagia and worsening exertional dypnea. He is a lifelong smoker with known hi story of COPD as well. 12/09/2019 PET/CT revealed spiculated lesion in the right upper lobe unchanged. Left lung revealed significant improvement.Resolution of the enlarged hypermetabolic mediastinal lymphadenopathy and improved left hilar mass. 07/10/2020 PET scan revealed bilateral areas of within the lungs with FDG avid uptake. The right upper lobe showed interval development concerning for progression of disease. Superior segment of the right lower lobe, there was peripheral density abnormality which was metabolically active corresponding with metabolic activity and the SUV of 3.9 and groundglass opacity in the left upper lobe and developed. Left lower lobe mass also showed increasing FDG activity. Right lobe of liver also revealed increased lesion 6.2cm (previouslys 3cm) which was also concerning for progressive metastatic disease. He was seen by Dr. Sanders this week and during visit was found to have increased hypoxia and exertional dyspnea, therefore was referred to emergency department for further work-up. He was also febrile at that time T-Max 100.5. Symptoms had progressed over past weeks despite steroid course as outpatient. During Emergency Room evaluation: Covid [address] testing came back negative[address] CT scan of the chest showed no evidence of any pulmonary embolism. Evidence of concern for immune therapy and/or radiation pneumonitis. There was a new patchy airspace disease in the posterior right lung base. Pulmonology was consulted and patient was admitted for further work-up. During initial interaction he was on room air, although with short discussion he was displaying an obvious increase in respiratory effort, saturation during that time was between 88-90% on room air. He was eager for discharge since admission. Review of Systems All systems: negative Constitutional: Reports as per HPI Past Medical History Past Medical History: Asthma, Cancer, COPD, GERD/Reflux, Prostate Disorder Additional Past Medical History / Comment(s): History of lung cancer with squamous cell Carcinoma of the lung, COPD with an FEV1 of 74% of predicted, BPH, History of Any Multi-Drug Resistant Organisms: None Reported Past Surgical History: Tonsillectomy Additional Past Surgical History / Comment(s): lung biopsy Past Anesthesia/Blood Transfusion Reactions: No Reported Reaction Past Psychological History: No Psychological Hx Reported Smoking Status: Former smoker Past Alcohol Use History: None Reported Past Drug Use History: None Reported - Past Family History Mother Family Medical History: No Reported History Father Family Medical History: Deep Vein Thrombosis (DVT) Additional Family Medical History / Comment(s): sepsis Medications and Allergies Home Medications Medication Instructions Recorded Confirmed Type Ascorbic Acid [Vitamin C] 500 mg PO DAILY 08/18/19 08/15/20 History Multivitamins, Thera [Multivitamin 1 tab PO DAILY 08/18/19 08/15/20 History (formulary)] Tamsulosin [Flomax] 0.4 mg PO HS 08/18/19 08/15/20 History Ibuprofen [Motrin Ib] 400 mg PO DAILY PRN 08/15/20 08/15/20 History Pantoprazole Sodium [Protonix] 40 mg PO [id number] #30 tablet. 08/17/20 Rx Allergies Allergy/AdvReac Type Severity Reaction Status Date / Time No Known Allergies Allergy Verified 08/15/20 11:00 Physical Exam Vitals: Vital Signs Temp Pulse Pulse Resp BP BP Pulse Ox 08/16/20 11:13 104 H 08/16/20 11:02 104 H 08/16/20 10:30 94 L 08/16/20 07:58 97.3 F L 91 16 128/79 95 08/16/20 07:41 104 H 08/16/20 07:30 108 H 90 L 08/16/20 02:31 97.7 F 95 116/65 95 08/15/20 20:00 120 H 20 08/15/20 19:25 100 08/15/20 19:11 100 08/15/20 18:57 97.8 F 120 H 126/72 94 L 08/15/20 17:00 98.2 F 118 H 20 157/96 91 L 08/15/20 15:39 113 H 22 124/77 96 08/15/20 14:35 98.5 F 122 H 26 H 120/77 96 08/15/20 14:03 130 H 08/15/20 13:51 128 H Intake and Output 08/15/20 08/16/20 08/16/20 22:59 06:59 14:59 Other: # Voids 1 - Constitutional General appearance: Present: cooperative, no acute distress - EENT Eyes: Present: EOMI, PERRLA ENT: Present: NA/AT, normal oropharynx - Neck Neck: Present: normal ROM - Respiratory Details: Increased respiratory effort noted - Cardiovascular Heart rate: 112 - Gastrointestinal General gastrointestinal: Present: normal bowel sounds, soft - Integumentary Integumentary: Present: pale - Neurologic Neurologic: Present: CNII-XII intact - Musculoskeletal Musculoskeletal: Present: gait normal - Psychiatric Psychiatric: Present: A&O x's 3, appropriate affect, intact judgment & insight Results CBC & Chem 7: 08/15/20 09:39 08/17/20 06:05 Labs: Abnormal Lab Results - Last 24 Hours (Table) 08/15/20 Range/Units 09:39 Procalcitonin 0.22 H (0.02-0.09) ng/mL Microbiology - Last 24 Hours (Table) 08/15/20 09:22 Blood Culture - Preliminary Blood No Growth after 24 hours 08/15/20 09:39 Blood Culture - Preliminary Blood No Growth after [address] scan - chest: report reviewed Assessment and Plan Plan: Assessment and Recommendations: 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 Also mentioned was suspicious liver lesions (6.2cm). - CT Chest 08/15 (CTA) - Reconfirms enlarging left lower lobe mass, as well as, post radiation Right Upper Lobe Changes. Appears most consistent with immune related treatment effect. Acute on Chronic Hypoxic Respiratory Insufficiency: - Suspicion of Interstitial lung disease related to recent immune therapy plus/minus radiation pneumonitis. Status Post Steroid Course as outpatient and Imfinzi treatment Discontinued. Minimal response to steroid course. - Pulmonary team is following - Oxygenating greater than 90% on Room air at this time, although with increased effort with minimal exertion - Repeat course of high dose steroids per pulm, add PPI. - Pulmonary planning Bronchoscopy to further evaluate picture. Continued supportive care and pulmonary support. Await bronchoscopy for further evaluation.
[2020-08-18] MEDS: SODIUM CHLORIDE 0.9% 1,000 ML IV SCH ×2 (01:48→09:57)
[2020-08-18] MEDS: CEFEPIME 2 GM in SODIUM CHLORIDE 0.9% 100 ML IVPB SCH ×2 (04:29→13:41)
[2020-08-18 07:47] VITALS: BP 143/83; RESP 18; TEMP 98.9
[2020-08-18] MEDS: ALBUTEROL NEBULIZED 2.5 MG/3 ML INHALATION SCH ×3 (07:53→16:01)
[2020-08-18] MEDS: PANTOPRAZOLE 40 MG TABLET PO SCH (07:55)
[2020-08-18] MEDS: HEPARIN SODIUM,PORCINE 5,000 UNIT/ML 1 ML VIAL SQ SCH (07:55)
[2020-08-18] MEDS: FAMOTIDINE 20 MG/2 ML VIAL IV SCH (07:55)
[2020-08-18] MEDS ORDERED: predniSONE 10 MG TAB PO SCH (09:00)
[2020-08-18] MEDS: AZITHROMYCIN 500 MG in SODIUM CHLORIDE 0.9% 250 ML IVPB SCH (11:03)
--- NOTE | 2020-08-18 11:21 | P.PN ---
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 We felt that the tachycardia is multifactorial. The patient was seen this morning. He still short of breath. He denies any symptoms of chest pain or chest discomfort. He still tachycardic with a resting heart rate around 100 beats per minutes. I am going to start the patient on metoprolol tartrate 12.5 mg by mouth twice a day. His pressure has been within normal limits and not low. The echocardiogram revealed normal left ventricular systolic function with mild aortic stenosis. Objective - Vital Signs Vital signs: Vital Signs Temp 98.9 F 08/18/20 07:46 Pulse 106 H 08/18/20 08:05 Resp 18 08/18/20 07:46 BP 143/83 08/18/20 07:46 Pulse Ox 86 L 08/18/20 10:45 Intake & Output 08/17/20 08/18/20 08/18/20 18:59 06:59 18:59 Intake Total 200 200 Balance 200 200 Intake: IV 200 Oral 200 Other: Voiding Method Toilet Toilet # Voids 1 - Constitutional General appearance: Present: no acute distress - Respiratory Respiratory: bilateral: diminished - Cardiovascular Rhythm: regular - Labs CBC & Chem 7: 08/15/20 09:39 08/17/20 06:05 Labs: Abnormal Lab Results - Last 24 Hours (Table) 08/17/20 Range/Units 06:05 TSH 0.320 L (0.350-5.500) uIU/mL Microbiology - Last 24 Hours (Table) 08/17/20 13:15 Bronchial Washings Culture - Preliminary Bronchial Brushings - Left 08/17/20 13:15 Fungal Culture - Preliminary Bronchial Brushings - Left 08/17/20 13:15 Acid Fast Bacilli Culture - Preliminary Bronchial Brushings - Left 08/15/20 09:22 Blood Culture - Preliminary Blood No Growth after 48 hours 08/15/20 09:39 Blood Culture - Preliminary Blood No Growth after 48 hours Assessment and Plan Assessment: Assessment #1 squamous cell carcinoma of the lung #2 chronic obstructive pulmonary disease #3 sinus tachycardia Plan #1 start the patient on a small dose of metoprolol #2 the echo was reviewed and showed normal LV function was mild aortic stenosis #3 follow-up with the patient
--- NOTE | 2020-08-18 11:27 | P.PN ---
Subjective Progress Note Date: 08/18/20 Principal diagnosis: Shortness of breath, hypoxemia, squamous cell carcinoma of the lung Pleasant 80-year-old male patient a chronic smoker. Wasn't diagnosed having a squamous cell carcinoma of the lung. He initially presented to me in August 2009 with abnormal CAT scan of the chest. He was having cough for almost a year. He went to see his Dr. Cummins and the patient had a chest x-ray that came back abnormal. Following that he was given a CAT scan of the chest that showed a spiculated area of masslike density in the left perihilar area in the superior segment of the left lower lobe segment measuring 3.2 x 2.1 cm in size. There was a second spiculated lesion in the right upper lobe measuring 1.2 x 1 cm. There is underlying emphysema. No significant mediastinal lymphadenopathy with exception of one left hilar lymph node measuring 1.2 cm in size. I performed a navigational bronchoscopy on this patient and the patient was diagnosed having a squamous cell carcinoma of the left upper lobe. He had a left perihilar mass with lymphadenopathy that was biopsied it was consistent with was cell carcinoma. He had another 1.4 cm lesion in the right upper lobe bronchoscopy did not yield any positive results from the right upper lobe and we assume that this is either a metastatic deposit for a synchronous primary. The patient was referred to oncology. He was started on treatment. He receives concurrent chemoradiation therapy which he tolerated well. He lost around 5 pounds. He developed some dysphagia which is mild. He is also having some exertional dyspnea. He has COPD and his FEV1 is no more than of 73% of predicted. He underwent a follow-up PET/CT that was done on 12/09/2019 and the PET/CT showed that the spiculated lesion in the right upper lobe has remained unchanged compared to the previous imaging and was measuring 1.4 x 1.1 cm. As for the left side, there was significant improvement. There was resolution of the enlarged hypermetabolic mediastinal lymphadenopathy and improved left hilar mass. No suspicious nodules appeared other than the ones mentioned. This was consistent with positive partial treatment response. The patient was given immunotherapy in the form of Imfinzi active treatment every 2 weeks and the last treatment was in June 2020.. He was also going to undergo radiosurgery to the right upper lobe. The patient had a subsequent PET scan of the body on 07/10/2020 and the PET scan showed bilateral areas of attenuation within the lungs with metabolic uptake. The right upper lobe showed interval development of an abnormal inc reased attenuation compared to the prior exam and it had progressed. There was some air bronchograms extending to the apex and along the medial aspect of the left upper lobe as well as anterior margin of the pleural surface with some mild uptake. Within the superior segment of the right lower lobe, there was also abnormal peripheral density corresponding with metabolic activity and the SUV of 3.9 and groundglass opacity in the left upper lobe and developed. There was also a left lower lobe mass peripherally showing increased metabolic activity. As such, there was evidence of interval progression. There was also a right lobe of the liver lesion increases in size measuring 6.2 cm in size compared to 3.6 cm in size on previous evaluation. The patient came into the emergency department upon the request of his oncologist because of worsening shortness of breath and hypoxemia. The patient had a temperature 100.6 at home. He was seen at oncology office and he was sent over to the hospital. He was progressively getting more short of breath over the past few months. He has been started on steroids recently and the stated that he had limited response. The patient is short of breath with minimal amount of activity even walking around 10 feet. No leg swelling. No DVTs. No pleurisy. He does have some occasional cough that is nonproductive. His white cell count is at 4.2 with hemoglobin 14.7 and a platelet count of 196, correlation profile is within normal, blood work essentially within normal in terms of his chemical profile and the proBNP level is only at 46 with a troponin of less than 0.01 and the Covid 19 testing came back negative. A CAT scan of the chest was done in the ED that showed no evidence of any pulmonary embolism. There was bilateral groundglass changes in combination with COPD. There was upper lobe irregular areas of consolidation and volume loss mainly in the left perihilar area representing most likely in mass and some right upper lobe o pacity extending to the periphery probably related to radiation pneumonitis. There was a new patchy airspace disease in the posterior right lung base. There was also some subcarinal lymph nodes were small largest being around 1.1 cm in size. Note that the patient's breathing was progressively getting worse as of March 2020. 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 He was started on 40 mg and tapered by 10 mg every 1 week. By the time he went to a lower dose of prednisone, his breathing got worse and for that reason he end up in the hospital today for further investigation. The patient is seen today 08/16/2020 in follow-up on the regular medical floor. He is currently resting quite comfortably in bed. Awake and alert in no acute distress. He states he is breathing easier today compared to yesterday. Maintaining good O2 saturations in the 90s on 2 L/m per nasal cannula. He's been afebrile. Chest x-ray reveals abnormal densities in the upper lobes bilaterally. Suspect some radiation pneumonitis along with noted lung mass. Cannot rule out underlying pneumonia. Pro-calcitonin 0.22. Chronic virus not detected. He remains on antibiotics in the form of cefepime and azithromycin. Continued on bronchodilators, IV Solu-Medrol, heparin for DVT prophylaxis. The patient is seen today 08/18/2020 in follow-up on the regular medical floor. He is currently sitting up in a chair at the bedside. Awake and alert in no acute distress. He is quite anxious to go home. He did have his bronchoscopy with BAL and brushings yesterday. Cultures and cytology are pending. He is desaturating to 86% on room air and he will be provided with home oxygen. Computed tomography scan of the brain revealed a abnormal enhancement inferior left cerebellar hemisphere. MRI was recommended and scheduled for 2 PM today. He remains on bronchodilators, prednisone taper, and Videx in the form of cefepime and azithromycin. Objective - Vital Signs Vital signs: Vital Signs Temp 98.9 F 08/18/20 07:46 Pulse 106 H 08/18/20 08:05 Resp 18 08/18/20 07:46 BP 143/83 08/18/20 07:46 Pulse Ox 86 L 08/18/20 10:45 Intake & Output 08/17/20 08/18/20 08/18/20 18:59 06:59 18:59 Intake Total 200 200 Balance 200 200 Intake: IV 200 Oral 200 Other: Voiding Method Toilet Toilet # Voids 1 - Exam GENERAL EXAM: Alert, pleasant 80-year-old gentleman, on 2 L nasal cannula, comfortable in no apparent distress. HEAD: Normocephalic. EYES: Normal reaction of pupils, equal size. NOSE: Clear with pink turbinates. THROAT: No erythema or exudates. NECK: No masses, no JVD. CHEST: No chest wall deformity. LUNGS: Equal air entry with few scattered rhonchi of the upper lobe. CVS: S1 and S2 normal with no audible murmur, regular rhythm. ABDOMEN: No hepatosplenomegaly, normal bowel sounds, no guarding or rigidity. SPINE: No scoliosis or deformity SKIN: No rashes CENTRAL NERVOUS SYSTEM: No focal deficits, tone is normal in all 4 extremities. EXTREMITIES: There is no peripheral edema. No clubbing, no cyanosis. Peripheral pulses are intact. - Labs CBC & Chem 7: 08/15/20 09:39 08/17/20 06:05 Labs: Abnormal Lab Results - Last 24 Hours (Table) 08/17/20 Range/Units 06:05 TSH 0.320 L (0.350-5.500) uIU/mL Microbiology - Last 24 Hours (Table) 08/17/20 13:15 Bronchial Washings Culture - Preliminary Bronchial Brushings - Left 08/17/20 13:15 Fungal Culture - Preliminary Bronchial Brushings - Left 08/17/20 13:15 Acid Fast Bacilli Culture - Preliminary Bronchial Brushings - Left 08/15/20 09:22 Blood Culture - Preliminary Blood No Growth after 48 hours 08/15/20 09:39 Blood Culture - Preliminary Blood No Growth after 48 hours Assessment and Plan Assessment: 1. Squamous cell carcinoma of lung - patient presented in August 2019 with a left upper lobe/perihilar mass with lymphadenopathy in addition to a 1.2 cm lesion in the right upper lobe. The patient currently completed concurrent chemoradiation therapy and the left hilar mass has shown improvement with resolution of the l lymphadenopathy and the finding of the PET scan is considered to be partial positive response. the patient also received radiosurgery regarding the right upper lobe pulmonary nodule which is being treated as a synchronous lesion rather than metastatic. He was treated with Imfinzi on outpatient basis till June 2020. Treatment has been discontinued as the patient was suspected to have ILD related to the medication as the patient developed diffuse interstitial changes and probably will infiltrates. The patient was also given a course of steroids on outpatient basis. C34.90: Malignant neoplasm of unspecified part of unspecified bronchus or lung Status post bronchoscopy with BAL and brushings of the right upper lobe on 08/17/2020. Cultures and pathology are pending. 2 dyspnea/hypoxemia with progressive worsening in exercise capacity. The patient had a PET scan on 07/10/2020 indicating possibly metastatic disease with the patient had progression of the lesions especially in the left lower lobe mass which had shown growth and possible postobstructive changes in addition to scattered areas of air bronchograms and some postradiation changes in the right upper lobe. There was also suspicious lesion in the liver measuring 6.2 cm in size. The CTA of the chest that was done today on 08/15/2020 showed an enlarging left lower lobe/left infrahilar mass in addition to post radiation changes in the right upper lobe, new airspace disease in the right lower lobe, and areas of groundglass changes bilaterally. 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 The patient has received steroids on outpatient basis with limited response. 3. chronic obstructive airways disease - spirometry today showed a drop in his lung capacity and FEV1 is down to 73% of predicted. Anoro one inhalation a day and Ventolin 2 puffs on an as-needed basis. 4 sinus tachycardia 5 fever Plan: The patient was seen and evaluated by Dr. Vazquez Bronchoscopy with BAL and brushings of the right upper lobe performed yesterday Cultures and pathology pending Computed tomography scan of the brain noted, MRI pending The patient does qualify for home oxygen which will be supplied Pleated prednisone taper continue bronchodilators Complete a course of antibiotics Follow up with Dr. Vazquez in the office in 1-2 weeks' I, the cosigning physician, performed a history & physical examination of the patient. Lungs sounds with few scattered rhonchi in the upper lobe. Maintaining good O2 saturations in the 90s on 2 L/m per nasal cannula. I discussed the assessment and plan of care with my nurse practitioner, Lilibeth Khan. I attest to the above note as dictated by her.
[2020-08-18 11:36] VITALS: PULSE 112
[2020-08-18] MEDS: LACTATED RINGERS 1,000 ML IV SCH (13:41)
--- NOTE | 2020-08-18 14:54 | MR ---
EXAMINATION TYPE: MR brain wo/w con DATE OF EXAM: 08/18/2020 COMPARISON: Prior MRI brain September 16, 2019. CT brain from yesterday. HISTORY: Rule out brain mets, history of lung cancer. TECHNIQUE: Multiplanar, multisequence images of the brain and brainstem is performed without and with IV contras t, utilizing 8 mL intravenous Gadavist . FINDINGS: Diffusion weighted images demonstrate no evidence of a recent infarct or other diffusion ab normality. There is mild ventricular and sulcal prominence redemonstrated. Mild T2 hyperintense batista ges in the periventricular white matter redemonstrated. Midline structures redemonstrate normal morphology. The craniocervical junction remains within becka l limits. The visualized sinuses are clear and the globes are intact. Postcontrast images show persistent normal draining dural venous sinuses. No new suspicious and enhan cing intraparenchymal mass identified. Particular attention to the left inferior cerebellum at area o f CT concern is felt to reflect volume averaging from adjacent bone on CT. IMPRESSION: Stable mild diffuse cerebral atrophy and chronic small vessel ischemic change. No new enh ancing masses to suggest metastatic disease to the brain are identified.
--- NOTE | 2020-08-18 16:35 | P.DS ---
Providers Date of admission: 08/15/20 11:48 Expected date of discharge: 08/18/20 Attending physician: Rob Johnson MD Consults: 08/15/20 11:48 Consult Physician Routine Consulting Provider: Tejas Vazquez Consult Reason/Comments: dyspnea Do you want consulting provider notified?: Yes 08/15/20 11:49 Consult Physician Routine Consulting Provider: Casper Ervin Consult Reason/Comments: Oncological care Do you want consulting provider notified?: Yes 08/17/20 09:00 Consult Physician Urgent Consulting Provider: Osbaldo Obrien Consult Reason/Comments: Tachycardia Do you want consulting provider notified?: Yes Primary care physician: Omi Cummins [facility] Course: Final diagnosis Possible right lower pneumonia Abnormal CT of the chest showing possible interstitial lung disease and infrahilar mass Status post bronchoscopy Stage IIIB left side lung cancer Possible radiation pneumonitis Benign prostatic hypertrophy DVT prophylaxis GI prophylaxis Discharge disposition Patient is being discharged in a stable condition with guarded prognosis to home. Patient will follow-up with Dr. Cummins in the outpatient setting upon discharge. Patient also instructed to follow-up with cardiology, pulmonary, and oncology in the outpatient setting. Patient will continue on oral antibiotics in the form of Ceftin 500 mg twice daily for the next 4 days to complete the course. Patient will also continue with the prednisone taper and Zithromax 500 mg daily for 4 days as well. Total time taken is greater than 35 minutes. Hospital course This is a 80-year-old male who was recently admitted with dyspnea and chest tightness and is being closely monitored. She was seen and evaluated by cardiology, pulmonary, and oncology and will follow-up in the outpatient setting. Patient was also started on antibiotics and will continue with oral antibiotics in the form of Ceftin 500 mg twice daily along with Zithromax 500 mg daily for the next 4 days to complete course. Patient will also continue with the prednisone taper on discharge. Patient is to continue with breathing inhalational treatments and a prescription for a nebulizer was provided or his COPD. Patient was also provided a prescription for oxygen in the outpatient setting. Patient underwent bronchoscopy with pulmonary and will follow-up in the outpatient setting for results. Patient also instructed to follow-up with oncology. Currently no reports of chest pain, worsening shortness of breath, or palpitations. Patient is afebrile. No reports of nausea or vomiting and patient is tolerating diet. Patient will discharged home today. Guarded prognosis. On exam vital signs are stable. Cardio S1, S2 are muffled. Respiratory system shows diminished breath sounds at the bases with no wheezing or rhonchi noted. Abdomen is soft and nontender. Nervous system shows no focal deficits. Please refer to medication reconciliation sheet for a list of medications. Patient Condition at Discharge: Fair Plan - Discharge Summary Discharge Rx Participant: No New Discharge Prescriptions: New Pantoprazole Sodium [Protonix] 40 mg PO AC-BRKFST #30 tablet. Cefuroxime Axetil [Ceftin] 500 mg PO BID 4 Days #8 tab Metoprolol Tartrate [Lopressor] 12.5 mg PO BID 30 Days #60 tab predniSONE 10 mg PO DIRECTED #30 tab Budesonide-Formot 160-4.5 Mcg [Symbicort 160-4.5 Mcg Inhaler] 2 puff INHALATION RT-BID 30 Days #1 puff Calcium Carbonate [Tums] 1,000 mg PO QID PRN chew PRN Reason: Heartburn Albuterol Nebulized [Ventolin Nebulized] 2.5 mg INHALATION RT-QID 30 Days #100 ml Azithromycin [Zithromax] 500 mg PO DAILY 4 Days #4 tab Famotidine [Pepcid] 20 mg PO BID #60 tablet ALPRAZolam [Xanax] 0.5 mg PO BID PRN #10 tablet PRN Reason: Anxiety Continue Tamsulosin [Flomax] 0.4 mg PO HS Multivitamins, Thera [Multivitamin (formulary)] 1 tab PO DAILY Ascorbic Acid [Vitamin C] 500 mg PO DAILY Ibuprofen [Motrin Ib] 400 mg PO DAILY PRN PRN Reason: Pain Discharge Medication List Ascorbic Acid [Vitamin C] 500 mg PO DAILY 08/18/19 [History] Multivitamins, Thera [Multivitamin (formulary)] 1 tab PO DAILY 08/18/19 [History] Tamsulosin [Flomax] 0.4 mg PO HS 08/18/19 [History] Ibuprofen [Motrin Ib] 400 mg PO DAILY PRN 08/15/20 [History] Pantoprazole Sodium [Protonix] 40 mg PO AC-BRKFST #30 tablet. 08/17/20 [Rx] ALPRAZolam [Xanax] 0.5 mg PO BID PRN #10 tablet 08/18/20 [Rx] Albuterol Nebulized [Ventolin Nebulized] 2.5 mg INHALATION RT-QID 30 Days #100 ml 08/18/20 [Rx] Azithromycin [Zithromax] 500 mg PO DAILY 4 Days #4 tab 08/18/20 [Rx] Budesonide-Formot 160-4.5 Mcg [Symbicort 160-4.5 Mcg Inhaler] 2 puff INHALATION RT-BID 30 Days #1 puff 08/18/20 [Rx] Calcium Carbonate [Tums] 1,000 mg PO QID PRN chew 08/18/20 [Rx] Cefuroxime Axetil [Ceftin] 500 mg PO BID 4 Days #8 tab 08/18/20 [Rx] Famotidine [Pepcid] 20 mg PO BID #60 tablet 08/18/20 [Rx] Metoprolol Tartrate [Lopressor] 12.5 mg PO BID 30 Days #60 tab 08/18/20 [Rx] predniSONE 10 mg PO DIRECTED #30 tab 08/18/20 [Rx] Follow up Appointment(s)/Referral(s): Omi Cummins MD [Primary Care Provider] - 1-2 days (Office closed at time of discharge please call FridayAugust 21 to set up a follow up appointment) Osbaldo Obrien MD [STAFF PHYSICIAN] - 1 Week (Office will be calling you with an appointment date and time) [facility],Equipment [NON-STAFF] - ([facility] will deliver a portable oxygen tank and nebulizer to your bedside before discharge. Please call [facility] once home to arrange delivery of the oxygen concentrator. ) Lilibeth Khan NPC [Nurse Practitioner] - 09/06/20 3:30 pm Casper Ervin MD [STAFF PHYSICIAN] - 09/07/20 10:30 am () Patient Instructions/Handouts: Pneumonia (DC) Activity/Diet/Wound Care/Special Instructions: Patient will require a nebulizer in the home to manage Albuterol nebulizer treatments 4 times daily for his COPD, lung cancer, pneumonia Activity Limited until follow-up Follow-up with primary care provider upon discharge Continue prednisone taper as directed Continue antibiotics until finished Follow-up with pulmonary outpatient Follow-up cardiology outpatient Follow-up oncology outpatient Discharge Disposition: HOME SELF-CARE
--- NOTE | 2020-08-18 17:45 | P.PN ---
Subjective Progress Note Date: 08/18/20 Principal diagnosis: Hypoxia Eager to be discharged, feeling better and breathing a little easier Objective - Vital Signs Vital signs: Vital Signs Temp 98.9 F 08/18/20 07:46 Pulse 112 H 08/18/20 11:36 Resp 18 08/18/20 07:46 BP 143/83 08/18/20 07:46 Pulse Ox 86 L 08/18/20 10:45 Intake & Output 08/17/20 08/18/20 08/18/20 18:59 06:59 18:59 Intake Total 200 200 Balance 200 200 Intake: IV 200 Oral 200 Other: Voiding Method Toilet Toilet # Voids 1 - Labs CBC & Chem 7: 08/15/20 09:39 08/17/20 06:05 Labs: Microbiology - Last 24 Hours (Table) 08/17/20 13:15 Gram Stain - Preliminary Bronchial Brushings - Left Bronchial Washings Culture - Preliminary 08/15/20 09:22 Blood Culture - Preliminary Blood No Growth after 72 hours 08/15/20 09:39 Blood Culture - Preliminary Blood No Growth after 72 hours 08/17/20 13:15 Fungal Culture - Preliminary Bronchial Brushings - Left 08/17/20 13:15 Acid Fast Bacilli Culture - Preliminary Bronchial Brushings - Left Assessment and Plan Plan: Assessment and Recommendations: 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 Also mentioned was suspicious liver lesions (6.2cm). - CT Chest 08/15 (CTA) - Reconfirms enlarging left lower lobe mass, as well as, post radiation Right Upper Lobe Changes. Appears most consistent with immune related treatment effect. Acute on Chronic Hypoxic Respiratory Insufficiency: - Suspicion of Interstitial lung disease related to recent immune therapy plus/minus radiation pneumonitis. Status Post Steroid Course as outpatient and Imfinzi treatment Discontinued. Minimal response to steroid course. - Pulmonary team is following - Oxygenating greater than 90% on Room air at this time, although with increased effort with minimal exertion - Repeat course of high dose steroids per pulm, add PPI. - Reviewed Bronchoscopy Follow-up in 1-2 weeks Physician attest: I have completed the full history and physical and agree with above dictation dictated as a scribe
[2020-08-18] MEDS ORDERED: SYMBICORT 160-4.5 MCG INHALER INHALATION SCH (20:00)
[2020-08-18] MEDS ORDERED: FAMOTIDINE 20 MG TAB PO SCH (21:00)
[2020-08-18] MEDS ORDERED: METOPROLOL TARTRATE 12.5 MG TAB PO SCH (21:00)
== END 2020-08-18 15:30 | disposition home or self-care (01) | DRG 194 ==
LOC: EC 09:02 → 4SSUR 11:48
PROVIDERS: ADMIT Internal Medicine; ATTEND Internal Medicine
PROC: 0B9J8ZX Drainage of Left Lower Lung Lobe, Via Natural or Artificial Opening Endoscopic, Diagnostic (ICD-10-PCS; principal; 2020-08-17 12:40)
PROC: 0BDB8ZX Extraction of Left Lower Lobe Bronchus, Via Natural or Artificial Opening Endoscopic, Diagnostic (ICD-10-PCS; principal; 2020-08-17 12:40)
DX: J18.9 Pneumonia, unspecified organism (principal); C34.12 Malignant neoplasm of upper lobe, left bronchus or lung; D84.9 Immunodeficiency, unspecified; J70.0 Acute pulmonary manifestations due to radiation; I45.10 Unspecified right bundle-branch block; N40.0 Benign prostatic hyperplasia without lower urinary tract symptoms; F41.9 Anxiety disorder, unspecified; Z87.891 Personal history of nicotine dependence; R13.10 Dysphagia, unspecified; Y84.2 Radiological procedure and radiotherapy as the cause of abnormal reaction of the patient, or of later complication, without mention of misadventure at the time of the procedure; R59.0 Localized enlarged lymph nodes; J43.9 Emphysema, unspecified; K21.9 Gastro-esophageal reflux disease without esophagitis; Z20.822 Contact with and (suspected) exposure to COVID-19; R00.0 Tachycardia, unspecified; K76.9 Liver disease, unspecified; R06.89 Other abnormalities of breathing; R09.02 Hypoxemia; T38.0X5A Adverse effect of glucocorticoids and synthetic analogues, initial encounter; F41.8 Other specified anxiety disorders; R45.1 Restlessness and agitation; Z79.899 Other long term (current) drug therapy; Z92.3 Personal history of irradiation; Z92.21 Personal history of antineoplastic chemotherapy; Z83.2 Family history of diseases of the blood and blood-forming organs and certain disorders involving the immune mechanism
CPT/HCPCS: 31623; 31624; 36415; 70460; 70553; 71045; 71046; 71275; 80048; 80053; 83605; 83735; 83880; 84145; 84439; 84443; 84484; 85025; 85610; 85730; 87040; 87070; 87102; 87116; 87205; 87206; 87252; 87449; 87496; 87498; 87502; 87529; 87634; 87635; 87798; 88104; 88108; 88305; 89050; 93005; 93306; 94640; 94760; 96365; 96366; 96367; 96375; 99285

== ENCOUNTER → 2020-09-28 | Outpatient (CLI) | payer MEDICARE ==
[2020-09-28 09:34] LABS: African American GFR (CKD) >90 (>60 ml/min/1.73 sqM); Blood Urea Nitrogen 16 mg/dL (9-20); Non-African American GFR(CKD) 86 (>60 ml/min/1.73 sqM)
--- NOTE | 2020-09-28 10:23 | CT ---
EXAMINATION TYPE: CT chest w con DATE OF EXAM: 09/28/2020 COMPARISON: Prior CT August 15, 2020 and older studies HISTORY: Lung CA follow up CT DLP: 393.1 mGycm. Automated Exposure Control for Dose Reduction was Utilized. TECHNIQUE: CT scan of the thorax is performed following with IV Contrast, patient injected with 100 mL of Isovue 300. FINDINGS: LUNGS: Moderate underlying emphysematous change is redemonstrated. Small with tiny left pleural fluid collection is again seen. Persistent right upper lung irregular masslike consolidation measuring 4.2 x 2.1 cm on axial image 16 slightly more prominent from most recent CT due to enlarging More central 2.0 x 1.7 cm obstructing nodule axial image 18 versus roughly 1.3 x 1.[address] axial imag es 38. Nodular consolidation felt less likely. Persistent posttreatment change of bilateral hilar reg ion with mild bronchiectasis and peribronchial wall thickening. Persistent masslike consolidation lef t slightly suprahilar level extending posteriorly measuring approximately 5.2 x 4.0 cm axial image 25 not significant change from most recent CT. There is endobronchial component into the distal left ester ng bronchus on axial image 28 redemonstrated similar to prior study. Scattered areas of reticulation and groundglass opacity favor mild edema and/or posttreatment changes similar to prior in the mid daniel gs and bases. MEDIASTINUM: There are no new greater than 1 cm hilar or mediastinal lymph nodes. Stable prominent B udde subcentimeter subcarinal lymph nodes. No cardiomegaly or pericardial effusion is seen. Coronary artery calcification is redemonstrated. OTHER: Small sized hiatal hernia. Partial visualization of thin-walled cyst or cystic lesion in the i nferior right hepatic lobe last axial image 72. In retrospect this has been present on most recent PE T CTs and is increasing in size. Differential includes infection versus cystic metastatic static dise ase, former is favored. Follow-up advised. Correlate clinically. IMPRESSION: Continued neoplastic progression. Left slightly suprahilar lung neoplasm fairly stable fr om most recent CT. There is interval progression from older studies. The right upper lung central nod ule shows interval progression in size from most recent CT with slightly more prominent obstructive a telectasis. In addition there is note made of enlarging thin-walled cyst or cystic lesion in the infe rior right hepatic lobe, consider hepatic abscess. Correlate clinically. Follow-up advised.
== END | disposition home or self-care (01) ==
LOC: RADCTMAIN 08:52
PROVIDERS: ATTEND Internal Medicine Hematology & Oncology
DX: C34.90 Malignant neoplasm of unspecified part of unspecified bronchus or lung (principal)
CPT/HCPCS: 82565; 84520; 71260; 36415; Q9967

== ENCOUNTER → 2020-12-28 | Outpatient (CLI) | payer MEDICARE ==
[2020-12-28 08:34] LABS: African American GFR (CKD) >90 (>60 ml/min/1.73 sqM); Blood Urea Nitrogen 19 mg/dL (9-20); Non-African American GFR(CKD) 87 (>60 ml/min/1.73 sqM)
--- NOTE | 2020-12-28 19:04 | CT ---
EXAMINATION TYPE: CT chest w con DATE OF EXAM: 12/28/2020 COMPARISON: 09/28/2020 HISTORY: Lung CA CT DLP: 381.3 mGycm, Automated exposure control for dose reduction was used. CONTRAST: Performed injected with 100 mL of Isovue 300. TECHNIQUE: Axial images were obtained at 5 mm thick sections. Reconstructed images are reviewed on [employer] computer in the coronal plane. FINDINGS: Portion of the thyroid visualized is normal. Some scarring may be present at the right apex. Neoplasm is not excluded. There 2.5 x 2.8 cm right suprahilar mass is slightly larger than the comparison. Increased density re elias in the left periaortic arch region. There is a large consolidation with air bronchograms throug h the posterior left perihilar region. This is slightly enlarged over the interval currently measurin g 6.4 x 4.5 cm. Previous measurement 5.2 x 4.0 cm. There is a new 0.7 cm nodule in the left posterior lateral lung. There is a new spiculated mass in th e posterior right lung measuring 3.8 x 2.0 cm. Series 4 image 36. There is a new irregular opacity in the anterior left lower lung field measuring 2.1 cm. Series 4 image 38. There is prominence of the subcarinal region measuring 1.1 cm. Lymphadenopathy may be present. This is somewhat smaller than the comparison study. Enlarged lymphadenopathy is not otherwise evident. Hi lar adenopathy would be difficult to exclude adjacent to these masses. The ascending aorta diameter at the level of the main pulmonary artery is 3.5 cm. The main pulmonary artery diameter at the bifurcation is 2.[address] sections are obtained through the upper abdomen. There is a hiatal hernia present. Large h epatic cyst at the inferior liver measuring 10 cm this may be larger although this could be the field -of-view. IMPRESSIONS: 1. Enlarging perihilar masses. 2. New lower lobe masses. 3. Enlarging cystic area within the liver. 4. Subcarinal lymphadenopathy may be smaller in comparison.
== END | disposition home or self-care (01) ==
LOC: RADCTMAIN 07:52
PROVIDERS: ATTEND Internal Medicine Hematology & Oncology
DX: Z03.89 Encounter for observation for other suspected diseases and conditions ruled out (principal); C34.32 Malignant neoplasm of lower lobe, left bronchus or lung; K76.89 Other specified diseases of liver; R91.8 Other nonspecific abnormal finding of lung field; R59.1 Generalized enlarged lymph nodes
CPT/HCPCS: 82565; 84520; 71260; 36415; Q9967

== ENCOUNTER → 2021-03-05 | Outpatient (CLI) | payer MEDICARE ==
[2021-03-05 12:40] LABS: African American GFR (CKD) >90 (>60 ml/min/1.73 sqM); Blood Urea Nitrogen 21 mg/dL (9-20); Non-African American GFR(CKD) 87 (>60 ml/min/1.73 sqM)
--- NOTE | 2021-03-05 14:52 | CT ---
EXAMINATION TYPE: CT chest w con DATE OF EXAM: 03/05/2021 COMPARISON: 12/28/2020, 09/28/2020, 07/07/2020 HISTORY: 80-year-old male C34.32, lung CA TECHNIQUE: Contiguous axial scanning of the chest after the administration of 100 mL of Isovue 300. Coronal/sagittal reconstructions performed. CT DLP: 440.9mGycm. Automatic exposure control utilized for a dose reduction. FINDINGS: Heart normal size without pericardial effusion. Three-vessel coronary artery calcifications are prese nt in remarkable for coronary artery disease. Aorta normal caliber with mild atherosclerotic arch calcifications and conventional arch vessel branc marcie anatomy. No thoracic lymphadenopathy by CT size criteria. Left hilar masslike consolidation measures 6.0 x 4.7 cm, unchanged from 12/28/2020. Some strandy scarr ing extending from the hilum to the anterior left upper lobe is unchanged. The right suprahilar bronchovascular mass has decreased in size currently 1.5 x 0.9 cm versus 2.8 x 2 .5 cm, previously. Curvilinear scarring extending from here to the apex is unchanged. However, there is a new 5 mm pulmonary nodule medial right upper lobe just adjacent, axial image 20. Additional new posterior right upper lobe pulmonary nodule measuring 6 mm, axial image 17. 5 mm right midlung pulmonary nodule, axial 3 is smaller compared to 7 mm, previously. Moderate centrilobular emphysema. Some tree-in-bud opacities at the right greater than left lung bases. No pleural effusion or aakash co nsolidation. Small hiatal hernia. Unchanged mild thickening of the left adrenal gland without discrete nodularity. Hepatic cyst measures 7.6 cm versus 10.0 cm, previously. Bones: No osseous destructive process. IMPRESSION: 1. Note mixed findings as outlined below: 2. Stable masslike left hilar consolidation measuring 6.0 x 4.7 cm, likely site of treated disease. 3. The patient's right suprahilar mass has decreased in size (15 x 9 mm now versus 2.8 x 2.5 cm, prev iously) compatible with favorable treatment response. An adjacent 5 mm right midlung pulmonary nodule is also smaller, previously measuring 7 mm. 4. However, there are 2 new right upper lobe pulmonary nodules measuring 6 mm and 5 mm, axial image 1 7 and 20, respectively. New metastatic pulmonary nodules are considered and continued follow-up is re commended. 5. COPD with background moderate emphysema. Tree-in-bud opacities right greater than left lung bases can be seen with bronchiolitis. Small hiatal hernia. 6. The patient's right hepatic lobe cyst has decreased in size currently 7.6 cm versus 10.0 cm, previ ously.
== END | disposition home or self-care (01) ==
LOC: RADCTMAIN 11:50
PROVIDERS: ATTEND Internal Medicine Hematology & Oncology
DX: C34.32 Malignant neoplasm of lower lobe, left bronchus or lung (principal); J43.9 Emphysema, unspecified; J21.9 Acute bronchiolitis, unspecified; K44.9 Diaphragmatic hernia without obstruction or gangrene
CPT/HCPCS: 82565; 84520; 71260; 36415; Q9967

== ENCOUNTER 2021-03-12 17:02 | Emergency (ER) | payer MEDICARE ==
[2021-03-12] MEDS ORDERED: IPRATROPIUM-ALBUTEROL 3 ML NEB INHALATION STA (17:05)
[2021-03-12] MEDS ORDERED: methylPREDNISolone SOD SUCCI 125 MG/2 ML VIAL IV STA (17:05)
[2021-03-12] MEDS ORDERED: LORazepam 2 MG/ML INJ IV STA ×2 (17:06→17:39)
[2021-03-12 17:08] VITALS: TEMP 98.2
--- NOTE | 2021-03-12 17:10 | ED ---
General Adult HPI - General Stated complaint: respiratory distress Time Seen by Provider: 03/12/21 17:04 Source: patient, EMS, RN notes reviewed Mode of arrival: EMS Limitations: no limitations - History of Present Illness Initial comments: Patient is a pleasant 80-year-old male presenting to the emergency Department with respiratory distress. Patient does have stage III lung cancer. Last chemotherapy was one week ago. Patient states he does not want to be intubated. Patient states he is DO NOT RESUSCITATE. Patient does state this in front of EMS and nursing staff. Patient also stated this to EMS prior to arrival. Patient did receive blood transfusion earlier today. Following this patient was discharged and had what family described as generalized tonic-clonic seizure activity lasting around 15 seconds. Family described this to EMS. Patient has been alert for EMS however was greenwood and dusky when they first found him. Patient was placed on oxygen and given advise her treatment with some improvement of symptoms. - Related Data Home Medications Medication Instructions Recorded Confirmed Ascorbic Acid [Vitamin C] 500 mg PO DAILY 08/18/19 03/12/21 Multivitamins, Thera [Multivitamin 1 tab PO DAILY 08/18/19 03/12/21 (formulary)] Tamsulosin [Flomax] 0.8 mg PO HS 08/18/19 03/12/21 Ibuprofen [Motrin Ib] 400 mg PO DAILY PRN 08/15/20 03/12/21 ALPRAZolam [Xanax] 0.5 mg PO DIRECTED PRN 03/12/21 03/12/21 Omeprazole 20 mg PO DAILY 03/12/21 03/12/21 Previous Rx's Medication Instructions Recorded Calcium Carbonate [Tums] 1,000 mg PO QID PRN chew 08/18/20 Allergies Allergy/AdvReac Type Severity Reaction Status Date / Time No Known Allergies Allergy Verified 03/12/21 17:03 Review of Systems ROS Statement: Those systems with pertinent positive or pertinent negative responses have been documented in the HPI. ROS Other: All systems not noted in ROS Statement are negative. Constitutional: Denies: fever Eyes: Denies: eye pain ENT: Denies: ear pain Respiratory: Reports: dyspnea. 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% of predicted, BPH, History of Any Multi-Drug Resistant Organisms: None Reported Past Surgical History: Tonsillectomy Additional Past Surgical History / Comment(s): lung biopsy Past Anesthesia/Blood Transfusion Reactions: No Reported Reaction Smoking Status: Former smoker - Past Family History Mother Family Medical History: No Reported History Father Family Medical History: Deep Vein Thrombosis (DVT) Additional Family Medical History / Comment(s): sepsis General Exam Limitations: no limitations General appearance: alert, in distress Head exam: Present: normocephalic Eye exam: Present: normal appearance, PERRL ENT exam: Present: normal oropharynx Neck exam: Present: normal inspection Respiratory exam: Present: respiratory distress, wheezes, decreased breath sounds Cardiovascular Exam: Present: regular rate, normal rhythm GI/Abdominal exam: Present: soft. Absent: tenderness Extremities exam: Present: normal inspection. Absent: pedal edema, calf tenderness Neurological exam: Present: alert Psychiatric exam: Present: normal affect, normal mood Skin exam: Present: normal color Course Vital Signs 03/12/21 03/12/21 03/12/21 17:04 17:13 17:23 Temperature 98.2 F Pulse Rate 63 56 L 48 L Respiratory 35 H Rate Blood Pressure 93/55 O2 Sat by Pulse 76 L Oximetry 03/12/21 03/12/21 17:30 18:00 Temperature Pulse Rate 85 48 L Respiratory 36 H 38 H Rate Blood Pressure 102/75 127/63 O2 Sat by Pulse 78 L 76 L Oximetry - Reevaluation(s) Reevaluation #1: 03/12/21 18:18 Case was discussed with Dr. Obrien. He recommends having transcutaneous a certain needed. He states that heart rate further drops her blood pressure drops he can come in to perform transvenous pacemaker needed and to call him back. 03/12/21 19:10 Patient started losing his blood pressure and was placed on transfer cutaneous pain. Difficulty finding pulse despite this. Blood pressure was inconsistent. Patient stopped breathing. is present. does not want patient to be intubated or CPR per his wishes. Patient reevaluated with no heart sounds. No spontaneous pulse. No breath sounds. No response to pain. Pupils fixed and dilated. Time of is 1904. 03/12/21 19:44 Dr. Vazquez was notified. He had previously come and seen the patient in the emergency department. Dr. Cummins was also notified. Case was discussed with pesticide use medical coordinator Carolina who does okay release of the body. EKG Findings - EKG Comments: EKG Findings:: Wide QRS rhythm. PVC present. AV dissociation present. Right bundle branch block. QRS 140. QTc 448. QTC 450. Left axis. Nonspecific T waves. Medical Decision Making - Lab Data Result diagrams: 03/12/21 17:15 03/12/21 17:15 Lab Results 03/12/21 03/12/21 03/12/21 Range/Units 17:15 17:15 17:15 WBC 5.7 (3.8-10.6) k/uL RBC 2.86 L (4.30-5.90) m/uL Hgb 9.5 L (13.0-17.5) gm/dL Hct 29.8 L (39.0-53.0) % MCV 104.1 H (80.0-100.0) fL MCH 33.2 (25.0-35.0) pg MCHC 31.8 (31.0-37.0) g/dL RDW 22.4 H (11.5-15.5) % Plt Count 180 (150-450) k/uL MPV 7.9 Neutrophils % (Manual) 33 % Band Neuts % (Manual) 4 % Lymphocytes % (Manual) 56 % Monocytes % (Manual) 7 % Neutrophils # (Manual) 2.10 (1.3-7.7) k/uL Lymphocytes # (Manual) 3.19 (1.0-4.8) k/uL Monocytes # (Manual) 0.40 (0-1.0) k/uL Nucleated RBCs 2 H (0-0) /100 WBC Manual Slide Review Performed Polychromasia Present Hypochromasia Moderate Poikilocytosis Slight Anisocytosis Moderate Macrocytosis Marked A PT 10.7 (9.0-12.0) sec INR 1.0 (<1.2) APTT 20.6 L (22.0-30.0) sec Sodium 138 (137-145) mmol/L Potassium 4.1 (3.5-5.1) mmol/L Chloride 105 (98-107) mmol/L Carbon Dioxide 13 L (22-30) mmol/L Anion Gap 20 mmol/L BUN 21 H (9-20) mg/dL Creatinine 1.10 (0.66-1.25) mg/dL Est GFR (CKD-EPI)AfAm 74 (>60 ml/min/1.73 sqM) Est GFR (CKD-EPI)NonAf 64 (>60 ml/min/1.73 sqM) Glucose 375 H (74-99) mg/dL Plasma Lactic Acid All (0.7-2.0) mmol/L Calcium 8.4 (8.4-10.2) mg/dL Magnesium (1.6-2.3) mg/dL Total Bilirubin 2.0 H (0.2-1.3) mg/dL AST 84 H (17-59) U/L ALT 52 H (4-49) U/L Alkaline Phosphatase 109 (38-126) U/L Troponin I (0.000-0.034) ng/mL NT-Pro-B Natriuret Pep pg/mL Total Protein 6.2 L (6.3-8.2) g/dL Albumin 3.5 (3.5-5.0) g/dL Coronavirus (PCR) (Not Detectd) 03/12/21 03/12/21 03/12/21 Range/Units 17:15 17:15 17:15 WBC (3.8-10.6) k/uL RBC (4.30-5.90) m/uL Hgb (13.0-17.5) gm/dL Hct (39.0-53.0) % MCV (80.0-100.0) fL MCH (25.0-35.0) pg MCHC (31.0-37.0) g/dL RDW (11.5-15.5) % Plt Count (150-450) k/uL MPV Neutrophils % (Manual) % Band Neuts % (Manual) % Lymphocytes % (Manual) % Monocytes % (Manual) % Neutrophils # (Manual) (1.3-7.7) k/uL Lymphocytes # (Manual) (1.0-4.8) k/uL Monocytes # (Manual) (0-1.0) k/uL Nucleated RBCs (0-0) /100 WBC Manual Slide Review Polychromasia Hypochromasia Poikilocytosis Anisocytosis Macrocytosis PT (9.0-12.0) sec INR (<1.2) APTT (22.0-30.0) sec Sodium (137-145) mmol/L Potassium (3.5-5.1) mmol/L Chloride (98-107) mmol/L Carbon Dioxide (22-30) mmol/L Anion Gap mmol/L BUN (9-20) mg/dL Creatinine (0.66-1.25) mg/dL Est GFR (CKD-EPI)AfAm (>60 ml/min/1.73 sqM) Est GFR (CKD-EPI)NonAf (>60 ml/min/1.73 sqM) Glucose (74-99) mg/dL Plasma Lactic Acid All 12.5 H* (0.7-2.0) mmol/L Calcium (8.4-10.2) mg/dL Magnesium (1.6-2.3) mg/dL Total Bilirubin (0.2-1.3) mg/dL AST (17-59) U/L ALT (4-49) U/L Alkaline Phosphatase (38-126) U/L Troponin I 1.450 H* (0.000-0.034) ng/mL NT-Pro-B Natriuret Pep 2670 pg/mL Total Protein (6.3-8.2) g/dL Albumin (3.5-5.0) g/dL Coronavirus (PCR) (Not Detectd) 03/12/21 03/12/21 Range/Units 17:15 17:15 WBC (3.8-10.6) k/uL RBC (4.30-5.90) m/uL Hgb (13.0-17.5) gm/dL Hct (39.0-53.0) % MCV (80.0-100.0) fL MCH (25.0-35.0) pg MCHC (31.0-37.0) g/dL RDW (11.5-15.5) % Plt Count (150-450) k/uL MPV Neutrophils % (Manual) % Band Neuts % (Manual) % Lymphocytes % (Manual) % Monocytes % (Manual) % Neutrophils # (Manual) (1.3-7.7) k/uL Lymphocytes # (Manual) (1.0-4.8) k/uL Monocytes # (Manual) (0-1.0) k/uL Nucleated RBCs (0-0) /100 WBC Manual Slide Review Polychromasia Hypochromasia Poikilocytosis Anisocytosis Macrocytosis PT (9.0-12.0) sec INR (<1.2) APTT (22.0-30.0) sec Sodium (137-145) mmol/L Potassium (3.5-5.1) mmol/L Chloride (98-107) mmol/L Carbon Dioxide (22-30) mmol/L Anion Gap mmol/L BUN (9-20) mg/dL Creatinine (0.66-1.25) mg/dL Est GFR (CKD-EPI)AfAm (>60 ml/min/1.73 sqM) Est GFR (CKD-EPI)NonAf (>60 ml/min/1.73 sqM) Glucose (74-99) mg/dL Plasma Lactic Acid All (0.7-2.0) mmol/L Calcium (8.4-10.2) mg/dL Magnesium 2.2 (1.6-2.3) mg/dL Total Bilirubin (0.2-1.3) mg/dL AST (17-59) U/L ALT (4-49) U/L Alkaline Phosphatase (38-126) U/L Troponin I (0.000-0.034) ng/mL NT-Pro-B Natriuret Pep pg/mL Total Protein (6.3-8.2) g/dL Albumin (3.5-5.0) g/dL Coronavirus (PCR) Not Detected (Not Detectd) - Radiology Data Radiology results: report reviewed (Brain CT shows no acute process. Computed tomography scan chest shows increasing left lower lobe mass. Pulmonary fibrosis. No pulmonary embolism.), image reviewed ((Lung mass. Interstitial changes right lower lung) Critical Care Time Critical Care Time: Yes Total Critical Care Time: 34 Disposition Clinical Impression: Respiratory arrest, Heart block, Lung cancer Disposition: Is patient prescribed a controlled substance at d/c from ED?: No Referrals: Omi Cummins MD [Primary Care Provider] - 1-2 days Preliminary Cause of : Lung cancer, respiratory arrest
[2021-03-12 17:39] LABS: Anisocytosis Moderate; HCT 29.8 % (39.0-53.0); HGB 9.5 gm/dL (13.0-17.5); Hypochromasia Moderate; MCH 33.2 pg (25.0-35.0); MCHC 31.8 g/dL (31.0-37.0); MCV 104.1 fL (80.0-100.0); Macrocytosis Marked; Mean Platelet Volume 7.9; Platelet Count 180 k/uL (150-450); Poikilocytosis Slight; RBC 2.86 m/uL (4.30-5.90); RDW 22.4 % (11.5-15.5)
[2021-03-12] MEDS ORDERED: PHENYTOIN SODIUM INJ 1,000 MG in SODIUM CHLORIDE 0.9% 100 ML IVPB STA (17:39)
[2021-03-12] MEDS ORDERED: FUROSEMIDE 10 MG/ML 4 ML VIAL IV STA (17:39)
--- NOTE | 2021-03-12 17:43 | XR ---
EXAMINATION TYPE: XR chest 1V portable DATE OF EXAM: 03/12/2021 COMPARISON: 08/17/2020 HISTORY: Short of breath TECHNIQUE: Single view FINDINGS: There is moderate patchy interstitial edema that is throughout the left lung and in the rig ht lower lobe. There is sparing of the right upper lobe. Heart size is normal. There is some spiculat ion at the left pulmonary hilum consistent with tumor. IMPRESSION: Pulmonary interstitial edema is slightly increased compared to old exam in the right lowe r lobe. No change on the left side. This could be pulmonary interstitial fibrosis or lymphangitic met astatic disease. No pleural fluid or cardiomegaly seen to suggest heart failure.
[2021-03-12 17:47] LABS: Albumin 3.5 g/dL (3.5-5.0); Calcium 8.4 mg/dL (8.4-10.2); Potassium 4.1 mmol/L (3.5-5.1); Total Protein 6.2 g/dL (6.3-8.2)
[2021-03-12] MEDS ORDERED: MORPHINE SULFATE 2 MG/ML SYRINGE IVP STA (17:50)
[2021-03-12] MEDS ORDERED: SODIUM BICARB 8.4% 50 ML SYR (1 MEQ/ML) IV STA ×2 (17:50→18:56)
[2021-03-12 18:00] LABS: Prothrombin Time 10.7 sec (9.0-12.0)
[2021-03-12 18:01] LABS: Partial Thromboplastin Time 20.6 sec (22.0-30.0)
[2021-03-12 18:03] VITALS: BP 127/63; PULSE 48; RESP 38
--- NOTE | 2021-03-12 18:50 | CT ---
EXAMINATION TYPE: CT angio chest DATE OF EXAM: 03/12/2021 COMPARISON: August 15, 2020 HISTORY: Shortness of breath CT DLP: 1655.9 mGycm Automated exposure control for dose reduction was used. CONTRAST: Performed with IV Contrast, patient injected with 100 mL of Isovue 370. There are 3-D post processed images. There is coarse interstitial infiltrate in both lungs. There is masslike consolidation at the inferio r left pulmonary hilum. This measures approximate 7.5 cm in diameter. I see no evidence of filling defect in the pulmonary arteries. Thoracic aorta is atheromatous. There is no pleural effusion. There is some patchy airspace consolidation in the medial left upper lobe and right upper lobe. The bony thorax is intact. Sternum is intact. IMPRESSION: Large left lower lobe mass is increased compared to old CT scan of 08/15/2020 and consistent with progr ession of tumor. Patchy bilateral pulmonary interstitial and airspace infiltrates also present on old exam and overall not significantly different. This is probably pulmonary fibrosis. No evidence of pulmonary embolism.
--- NOTE | 2021-03-12 18:52 | CT ---
EXAMINATION TYPE: CT brain wo con DATE OF EXAM: 03/12/2021 COMPARISON: 08/17/2020 HISTORY: New onset seizure. CT DLP: 1655.9 mGycm Automated exposure control for dose reduction was used. There is cerebral cortical atrophy. There is no mass effect nor midline shift. There is no evidence o f intracranial hemorrhage. Calvarium is intact. There is partial opacification right maxillary sinus. Skull base is intact. IMPRESSION: Cerebral atrophy. No acute intracranial abnormality. No change. Right maxillary sinusitis appears new compared to old exam.
[2021-03-12] MEDS ORDERED: EPINEPHrine (PF) 1 MG/ML AMP IV STA (19:00)
[2021-03-12] MEDS ORDERED: EPINEPHrine 10 ML SYRINGE (0.1 MG/ML) IV STA (19:05)
[2021-03-12 19:11] LABS: Band Neutrophils % 4 %; Lymphocytes # (M) 3.19 k/uL (1.0-4.8); Neutrophils % (M) 33 %; Nucleated Red Blood Cells 2 /100 WBC (0-0); Polychromasia Present; Total Cells Counted 100; WBC 5.7 k/uL (3.8-10.6)
[2021-03-12] MEDS ORDERED: PHENYTOIN SODIUM INJ 200 MG in SODIUM CHLORIDE 0.9% 36 ML IVPB SCH (21:00)
== END 2021-03-12 22:06 | disposition expired ==
LOC: EC 17:02
DX: R09.2 Respiratory arrest (principal); I45.9 Conduction disorder, unspecified; C34.90 Malignant neoplasm of unspecified part of unspecified bronchus or lung; K21.9 Gastro-esophageal reflux disease without esophagitis; J44.9 Chronic obstructive pulmonary disease, unspecified; N40.0 Benign prostatic hyperplasia without lower urinary tract symptoms; Z66 Do not resuscitate; Z87.891 Personal history of nicotine dependence; Z79.899 Other long term (current) drug therapy; Z20.822 Contact with and (suspected) exposure to COVID-19
CPT/HCPCS: 36415; 94660; 94640; 93005; 83880; 80053; 83605; 83735; 84484; 85025; 85610; 85730; 87635; 71045; 70450; 71275; 99291; 96365; 96375; 96376; J2060; J1165; J1940; J2930; J0171; J2270; Q9967